=== PATIENT | female | born 1955 | race Caucasian/White ===

== ENCOUNTER 2019-06-18 08:13 | Outpatient (CLI) | payer BC, SELFPAY ==
--- NOTE | ~2019-06-18 | MMUS_ITS ---
EXAMINATION: MM diag stella implant BI w shantel, US breast RT limited HISTORY: Lump in the lower inner right breast, history of right mastectomy with implant reconstructio n and left breast implant TECHNIQUE: Craniocaudal, mediolateral, and mediolateral oblique 3-D tomosynthesis images with implant displacement of the left breast were performed and synthetic 2-D images were generated. Craniocauda l, mediolateral oblique, and mediolateral views of both breasts without implant displacement were obt ained using full field digital mammography. CAD analysis was submitted and interpreted. High resoluti on limited right breast ultrasound was performed. COMPARISON: 08/15/2017, 09/05/2016, 09/14/2014, 04/08/2013 BREAST PARENCHYMAL COMPOSITION: There are scattered areas of fibroglandular density. FINDINGS: There is no evidence of suspicious mass, calcification, or architectural distortion in either breast to suggest malignancy. There has been no suspicious interval change. No mammographic correlate is i dentified for the reported palpable abnormality of the right breast. ULTRASOUND: There is no evidence of focal abnormal solid or cystic lesion in the vicinity of the reported right b reast lump. IMPRESSION: 1. No specific mammographic or sonographic correlate is identified for the reported palpable abnormal ity of concern of the right breast. Further evaluation at this time should be based on clinical asses sment. Continued follow-up physical examination is recommended. 2. Recommend routine screening mammography in one year. BI-RADS Category 1: Negative Reviewed, dictated and finalized at location A. [employer] IMPRESSION: 1. No specific mammographic or sonographic correlate is identified for the repo rted palpable abnormality of concern of the right breast. Further evaluation at this time should be based on clinical assessment. Continued follow-up physical examination is recommended. 2. Recommend routine screening mammography in one year. BI-RADS Category 1: Negative
== END 2019-06-18 08:14 ==
PROVIDERS: Visit Provider Nurse Practitioner
DX: N63.14 Unspecified lump in the right breast, lower inner quadrant (principal); Z90.11 Acquired absence of right breast and nipple
CPT/HCPCS: 76642; 77062; 77066; G0279

== ENCOUNTER → 2020-10-13 10:11 | Outpatient (CLI) | payer MEDICARE, SELFPAY ==
--- NOTE | ~2020-10-13 | DEXA_ITS ---
Bone Density Report Name: Lali Walker Age: 65 Sex: Female Ethnicity: White Date of : 1955 Indication: monitoring treatment; hysterectomy; postmenopausal Referring Provider: GAYLE, GABBY Study: Bone densitometry was performed. Exam Date: October 13, 2020 Accession number: [id number] Bone Density: Region BMD T-score Z-score Classification AP Spine (L1-L4) 1.128 0.7 2.5 Normal Femoral Neck (Left) 0.800 -0.4 1.1 Normal Total Hip (Left) 0.933 -0.1 1.2 Normal Femoral Neck (Right) 0.812 -0.3 1.2 Normal Total Hip (Right) 0.939 0.0 1.2 Normal Total Hip Mean 0.936 -0.1 1.2 Normal World Health Organization criteria for BMD impression classify patients as: Normal (T-score at or above -1.0), Osteopenia (T-score between -1.0 and -2.5), or Osteoporosis (T-score at or below -2.5). 10-year Fracture Risk: FRAX not reported because: All T-scores for Spine Total, Hip Total, Femoral Neck at or above -1.0 Treated for osteoporosis Previous Exams: Region Exam Age BMD T-score BMD Change BMD Change Date g/cm2 vs Baseline vs Previous AP Spine(L1-L4) 10/13/2020 65 1.128 0.7 0.031* 0.042* 04/07/2015 59 1.087 0.4 -0.011 -0.011 05/04/2004 48 1.098 0.5 Total Hip(Left) 10/13/2020 65 0.933 -0.1 -0.041* -0.015 04/07/2015 59 0.947 0.0 -0.026 -0.026 05/04/2004 48 0.973 0.3 Total Hip(Right) 10/13/2020 65 0.939 0.0 -0.073* -0.006 04/07/2015 59 0.946 0.0 -0.067* -0.067* 05/04/2004 48 1.013 0.6 *Denotes significance at 95% confidence level, LSC for AP Spine = 0.022 g/cm2, LSC for Total Hip = 0.027 g/cm2 Clinical Information Provided by Patient: Is being treated for osteoporosis Has used the following medications: HRT (i.e. estrogen/hormone therapy), Vitamin D Has the following medical conditions: Hysterectomy, Hx of right breast ca Patient maximum height was 65.5 Menopause Age: 38 No regular weight bearing exercise Drinks caffeinated beverages Onset of menses at age 12 Number of children 2 Impression: The patient has normal bone mass. No significant bone loss was observed. Discussion: PATIENT UNDER TREATMENT WITH NO SIGNIFICANT BMD LOSS SINCE LAST EXAM. In an untreated patient, BMD typically declines with age. A lack of decline or gain is usually a sign that treatment is efficacious and fracture risk is re
== END ==
PROVIDERS: PCP Family Medicine; Visit Provider Nurse Practitioner
DX: Z78.0 Asymptomatic menopausal state (principal)
CPT/HCPCS: 77080

== ENCOUNTER → 2020-11-03 12:21 | Outpatient (CLI) | payer MEDICARE, SELFPAY ==
--- NOTE | ~2020-11-03 | MM_ITS ---
EXAMINATION: MM scrn stella implant BI w shantel HISTORY: Screening mammogram, history of right breast cancer with mastectomy and implant reconstructi on and left breast implant TECHNIQUE: Craniocaudal and mediolateral oblique 3-D tomosynthesis images with implant displacement o f the left breast and synthetic 2-D images were generated. Craniocaudal and mediolateral oblique view s of the breasts without implant displacement were obtained using full field digital mammography. CAD analysis was submitted and interpreted. COMPARISON: 06/18/2019, 08/15/2017, 09/05/2016 BREAST PARENCHYMAL COMPOSITION: There are scattered areas of fibroglandular density. FINDINGS: There is no evidence of suspicious mass, calcification, or architectural distortion to sugg est malignancy in either breast. There has been no suspicious interval change. IMPRESSION: 1. No mammographic evidence of malignancy. 2. Recommend routine screening mammography in one year. BI-RADS Category 1: Negative Reviewed, dictated and finalized at location A.
== END ==
PROVIDERS: Visit Provider Nurse Practitioner
DX: Z12.31 Encounter for screening mammogram for malignant neoplasm of breast (principal)
CPT/HCPCS: 77063; 77067

== ENCOUNTER 2021-08-24 11:04 | Outpatient (CLI) | payer MEDICARE, SELFPAY ==
--- NOTE | ~2021-08-24 | XR_ITS ---
EXAMINATION: XR abdomen/kub 1V INDICATION: Hematuria TECHNIQUE: Supine views of the abdomen were obtained on 2 radiographs. COMPARISON: CT from today FINDINGS: No urinary tract calculi are identified. The bowel gas pattern is normal. There are no dila mariely loops of bowel. The visualized lung bases are clear. IMPRESSION: 1. No urolithiasis identified. Reviewed, dictated and finalized at location B.
--- NOTE | ~2021-08-24 | CT_ITS ---
EXAMINATION: CT abdomen pelvis wo/w con DATE: 08/24/2021 11:50 INDICATION: Hematuria. History of bladder infections. Cyst removed from kidney. Hysterectomy. TECHNIQUE: Computed tomography (CT) of the abdomen and pelvis was performed without and subsequently with 130 CC Omnipaque 350 intravenous contrast. Automated exposure control and iterative reconstructi on technique were employed. Exam dose: 1228.14 mGy-cm total exam DLP. COMPARISON: 12/17/2013 CT abdomen pelvis FINDINGS: The lung bases are clear of infiltrate or consolidation. Bilateral breast implants. Normal heart size. No pericardial or pleural effusion. There are numerous hypoattenuating lesions of the liver, many quite small, the largest measuring up t o approximately 1 cm. Dalton small to definitively characterize but these are most likely cysts. Normal splenic size. No pancreatic mass lesion, calcification or ductal dilatation. The gallbladder is present. No bile duct dilatation. Normal morphology of the adrenal glands. Stable small upper pole left renal cyst since 12/17/2013. No suspicious renal mass lesion is noted. No urinary tract calculus or hydroureteronephrosis. The urinar y bladder is unremarkable. Status post hysterectomy. There is atherosclerotic calcification but normal caliber of the abdominal aorta and iliac arteries. No intraperitoneal or retroperitoneal or pelvic mass lesion or adenopathy or ascites. There are numerous diverticula of the sigmoid colon and to a lesser extent descending colon; no evide nce of diverticulitis. No bowel obstruction, bowel wall thickening, pneumatosis or intraperitoneal free air. Proxy 7 x 10 mm polypoid filling defect is noted at the posterior base of the urinary bladder near mi dline. Cystoscopic correlation and possible biopsy are recommended. Severe degenerative disease and minimal retrolisthesis at L5-S1. Mild grade 1 anterolisthesis at L3-4 due to degenerative change at the apophyseal joints. No suspicious osteolytic or osteoblastic lesions are noted. IMPRESSION: 7 x 10 mm mass in posterior basal urinary bladder; cystoscopic correlation and possible biopsy are recommended Hepatic cysts, very small upper pole stable left renal cyst Diverticulosis of left colon; no CT evidence of diverticulitis Reviewed, dictated and finalized at Location A. Reviewed, dictated and finalized at location A. IMPRESSION: 7 x 10 mm mass in posterior basal urinary bladder; cystoscopic cor relation and possible biopsy are recommended Hepatic cysts, very small upper pole stable left renal cyst Diverticulosis of left colon; no CT evidence of diverticulitis
[2021-08-24 11:28] LABS: Estimated Glomerular Filt Rate > 60
== END 2021-08-24 11:05 ==
PROVIDERS: PCP Family Medicine; Visit Provider Nurse Practitioner Adult Health
DX: R31.9 Hematuria, unspecified (principal); K57.30 Diverticulosis of large intestine without perforation or abscess without bleeding; K76.89 Other specified diseases of liver
CPT/HCPCS: 74018; 74178; Q9967

== ENCOUNTER 2021-11-30 10:43 | Outpatient (CLI) | payer MEDICARE, SELFPAY ==
[2021-11-30 11:21] LABS: Hematocrit 43.8 % (37.0-47.0); Hemoglobin 14.1 g/dL (12.0-15.0); Mean Corpuscular HGB Conc 32.2 g/dl (32-36); Mean Corpuscular Hemoglobin 28.2 pg (26-34); Mean Corpuscular Volume 87.6 fl (80-100); Platelet Count Result 346 k/mm3 (150-375); Red Cell Distribution Width 13.7 % (11.5-14.5); White Blood Count 7.5 K/mm3 (4.5-10.0)
[2021-11-30 12:44] LABS: Prothrombin Time 12.6 Seconds (11.1-14.7)
[2021-11-30 12:45] LABS: Fibrinogen 358 mg/dl (215-510); Partial Thromboplastin Time 34.2 SECONDS (22.3-36.8)
== END 2021-11-30 10:44 | disposition home or self-care (01) ==
LOC: ANHLAB 10:45
PROVIDERS: PCP Family Medicine; Visit Provider Internal Medicine Hematology & Oncology
DX: R23.3 Spontaneous ecchymoses (principal)
CPT/HCPCS: 36415; 85027; 85240; 85245; 85246; 85247; 85384; 85610; 85670; 85730

== ENCOUNTER 2021-12-31 11:31 | Emergency (ER) | payer MEDICARE, SELFPAY ==
--- NOTE | ~2021-12-31 | XR_ITS ---
EXAMINATION: XR hip RT min 2V DATE: 12/31/2021 12:36 INDICATION: Right hip pain. Fall. TECHNIQUE: 3 views of right hip were obtained. COMPARISON: None. FINDINGS: Bone alignment is normal. No fracture. There is mild right hip osteoarthritis. IMPRESSION: 1. Mild right hip osteoarthritis. Reviewed, dictated and finalized at location A.
--- NOTE | ~2021-12-31 | XR_ITS ---
EXAMINATION: XR sacrum coccyx min 2V DATE: 12/31/2021 13:13 INDICATION: Sacrococcygeal pain. Fall. TECHNIQUE: 3 views of the sacrum and coccyx were obtained. COMPARISON: CT abdomen and pelvis 08/24/2021 FINDINGS: Bone alignment is normal. No fracture. There is mild osteoarthritis of the sacroiliac joint s. There is severe lower lumbar spondylosis. IMPRESSION: 1. No fracture. Reviewed, dictated and finalized at location A. IMPRESSION: 1. No fracture.
--- NOTE | ~2021-12-31 | XR_ITS ---
EXAMINATION: XR hip LT 2V w AP pelvis DATE: 12/31/2021 12:35 INDICATION: Left hip pain. Pelvic pain. Fall. TECHNIQUE: An anteroposterior view of the pelvis and 3 views of left hip were obtained. COMPARISON: CT abdomen and pelvis 08/24/2021 FINDINGS: Bone alignment is normal. No fracture. There is mild osteoarthritis of the hips. There is s evere lower lumbar spondylosis. IMPRESSION: 1. Mild osteoarthritis of the hips. Reviewed, dictated and finalized at location A.
[2021-12-31 11:39] VITALS: BP 144/70; PULSE 71; RESP 16; TEMP 36.2; O2SAT 100
--- NOTE | 2021-12-31 12:09 | ED.GENADULT ---
HPI - General Adult General Chief complaint: Back Pain/Injury Stated complaint: back pain Source: patient Mode of arrival: ambulatory Limitations: no limitations History of Present Illness HPI narrative: Patient presents for evaluation after experiencing a fall yesterday. She indicates she was getting out of her car in her garage. She slipped on the footboard in the garage floor was wet. She landed on her buttocks. She did not hit her head. No loss of consciousness. She is not on blood thinners. She now has pain in her posterior pelvis, bilateral hips, coccyx and left upper arm. She states that pain is constant, worse with movement. She states that pain in her left upper extremity is simply sore. No loss of range of motion. No numerical rating the pain. She states that pain in her posterior pelvis, coccyx are more severe. She took tramadol which seemed to help. No saddle anesthesia. No bladder/bowel incontinence. Related Data Home Medications Medication Instructions Recorded Confirmed amoxicillin 875 mg-potassium 1 tablet PO BID 12/31/21 12/31/21 clavulanate 125 mg tablet ergocalciferol (vitamin D2) 1,250 1,250 mcg PO WEEKLY 12/31/21 12/31/21 mcg (50,000 unit) capsule estradiol 1 mg tablet 1 mg PO DAILY 12/31/21 12/31/21 Allergies Allergy/AdvReac Type Severity Reaction Status Date / Time levofloxacin Allergy Unknown Other Verified 12/31/21 12:03 metronidazole Allergy Unknown Other Verified 12/31/21 12:03 Penicillins Allergy Unknown Other Verified 12/31/21 12:03 Review of Systems Review of Systems: CONSTITUTIONAL: Denies fever, chills, or sweats. EYES: Denies visual changes, redness, or discharge. ENT: Denies rhinorrhea, congestion, sore throat, or otalgia. CARDIOVASCULAR: Denies chest pain, palpitations, or edema. RESPIRATORY: Denies cough or dyspnea. GASTROINTESTINAL: Denies abdominal pain, nausea, vomiting, or diarrhea. GENITOURINARY: Denies dysuria or hematuria. SKIN: Denies rash or itching. MUSCULOSKELETAL: Reports pain in left upper arm, posterior pelvis, coccyx, bilateral hips. NEUROLOGIC: Denies headache, numbness, dizziness, or weakness. PSYCHIATRIC: Denies anxiety or depression. [facility] Past Medical History Medical History (Updated 12/31/21 @ 13:32 by Raulito Denton, [facility]) Pelvic contusion Vitamin D deficiency Family History Family History Sibling Patient's brother is in good health Other Family history of arthritis Social History Social History Smoking status: Never smoker Second hand tobacco smoke exposure: No Alcohol intake: current Substance use: never Gender identity (if verbalized by the patient): Female Spiritual care concerns: No Exam Narrative: GENERAL: Well-appearing, well-nourished, and in no acute distress. HEAD: Normocephalic, atraumatic. EYES: PERRLA and EOMI. ENT: Nares clear, no rhinorrhea or epistaxis. Mucous membranes moist. Oropharynx without tonsillar hypertrophy exudate or other lesions. Bilateral TMs pearly martel nonbulging NECK: Supple. No adenopathy or masses. No carotid bruits or JVD CHEST: Clear to auscultation. No respiratory distress. No wheezes rales or rhonchi HEART: Regular rate and rhythm. No murmur heard. Normal peripheral pulses. ABDOMEN: Soft, nontender, nondistended, normal active bowel sounds. EXTREMITIES: Normal range of motion. No edema. SKIN: Warm, dry, no rash. NEURO: No focal deficits. Alert and oriented x3. PSYCH: Normal mood and affect. Course Course Emergency Course: This is a 66-year-old female who presented for evaluation of pain in her posterior pelvis, coccyx, hips following a fall. X-rays were negative for fracture. She has had favorable response to tramadol. Will DC with a prescription for small quantity of tramadol. She may continue to take NSAIDs. She should follow-up outpatient
== END 2021-12-31 13:39 | disposition home or self-care (01) ==
PROVIDERS: Emergency Provider Nurse Practitioner; PCP Family Medicine
DX: S30.0XXA Contusion of lower back and pelvis, initial encounter (principal); W01.0XXA Fall on same level from slipping, tripping and stumbling without subsequent striking against object, initial encounter; E55.9 Vitamin D deficiency, unspecified
CPT/HCPCS: 72220; 73502; 99214; G0463

== ENCOUNTER → 2022-07-29 07:50 | Outpatient (CLI) | payer MEDICARE, SELFPAY ==
--- NOTE | ~2022-07-29 | CT_ITS ---
EXAMINATION: CT soft tissue neck w con DATE: 07/29/2022 08:34 INDICATION: Cervical lymphadenopathy. Neck pain. TECHNIQUE: Computed tomography (CT) of the neck was performed with 75 mL Omnipaque-350 intravenous co ntrast. Automated exposure control and iterative reconstruction technique were employed. The dose-fidencio gth product was 379.42 mGy-cm. COMPARISON: None FINDINGS: There is mild emphysema. There is mild scarring at the lung apices. There are bilateral opt ic nerve drusen. There are no pathologically enlarged lymph nodes. There is plaque in proximal right internal carotid artery with 0% stenosis relative to normal distal artery lumen diameter. There is se araceli cervical spondylosis. The paranasal sinuses are clear. The mastoid air cells are normal. IMPRESSION: 1. No lymphadenopathy. 2. Mild emphysema. Reviewed, dictated and finalized at location D.
[2022-07-29 08:21] LABS: Estimated Glomerular Filt Rate > 60
== END ==
PROVIDERS: PCP Family Medicine; Visit Provider Family Medicine
DX: R59.0 Localized enlarged lymph nodes (principal); J43.9 Emphysema, unspecified
CPT/HCPCS: 70491; Q9967

== ENCOUNTER → 2022-08-16 12:39 | Outpatient (CLI) | payer MEDICARE, SELFPAY ==
--- NOTE | ~2022-08-16 | MM_ITS ---
EXAMINATION: MM scrn stella implant BI w shantel HISTORY: Screening mammogram, history of right mastectomy and implant reconstruction TECHNIQUE: Craniocaudal and mediolateral oblique 3-D tomosynthesis images with implant displacement a nd synthetic 2-D images of the right breast were generated. Craniocaudal and mediolateral oblique vie ws of the breasts without implant displacement were obtained using full field digital mammography. CA D analysis was submitted and interpreted. COMPARISON: 11/03/2020, 06/18/2019, 08/15/2017 BREAST PARENCHYMAL COMPOSITION: There are scattered areas of fibroglandular density. FINDINGS: There is no evidence of suspicious mass, calcification, or architectural distortion to sugg est malignancy in either breast. There has been no suspicious interval change. IMPRESSION: 1. No mammographic evidence of malignancy. 2. Recommend routine screening mammography in one year. BI-RADS Category 1: Negative Reviewed, dictated and finalized at location A.
== END ==
PROVIDERS: PCP Nurse Practitioner; Visit Provider Nurse Practitioner
DX: Z12.31 Encounter for screening mammogram for malignant neoplasm of breast (principal)
CPT/HCPCS: 77063; 77067

== ENCOUNTER 2024-03-02 11:19 | Outpatient (CLI) | payer MEDICARE, SELFPAY ==
[2024-03-02 12:20] LABS: Strep Group A RT-PCR NOT DETECTED (Negative)
[2024-03-02 12:31] LABS: Influenza A QL RT-PCR Negative (Negative); Influenza B QL RT-PCR Negative (Negative); SARS-CoV-2 RNA PCR Negative (Negative)
== END 2024-03-02 11:20 | disposition home or self-care (01) ==
LOC: ANHLAB 11:23
PROVIDERS: PCP Nurse Practitioner; Visit Provider Internal Medicine
DX: J06.9 Acute upper respiratory infection, unspecified (principal); Z20.822 Contact with and (suspected) exposure to COVID-19
CPT/HCPCS: 87502; 87635; 87651

== ENCOUNTER 2024-04-15 14:11 | Outpatient (CLI) | payer MEDICARE, SELFPAY ==
--- NOTE | ~2024-04-15 | CT_ITS ---
EXAMINATION: CT abdomen pelvis w con DATE: 04/15/2024 14:43 INDICATION: Epigastric abdominal pain. TECHNIQUE: Computed tomography (CT) of the abdomen and pelvis was performed with 100 mL Omnipaque 350 intravenous contrast. Automated exposure control and iterative reconstruction technique were employe d. The dose-length product was 413.48 mGy-cm. COMPARISON: CT abdomen and pelvis 08/24/2021 FINDINGS: The visualized portions of the lung bases demonstrate minimal atelectasis. No pleural effus ion. The heart size is normal. No pericardial effusion. Partially visualized is a right breast implan t. There are cysts in the liver measuring up to 9 mm. The gallbladder, spleen, pancreas, adrenal glan ds, and kidneys are normal. There is diverticulosis of the colon without evidence of diverticulitis. There are no dilated loops of bowel. The appendix is not visualized. There are no pathologically enla rged lymph nodes. There is no free intraperitoneal fluid. There is severe lower lumbar spondylosis. IMPRESSION: 1. No etiology for the patient's symptoms. Reviewed, dictated and finalized at location A. [employer]
[2024-04-15 14:31] LABS: Estimated Glomerular Filt Rate > 60
== END 2024-04-15 14:12 | disposition home or self-care (01) ==
LOC: MICIMG 14:13
PROVIDERS: PCP Internal Medicine Gastroenterology; Visit Provider Internal Medicine Gastroenterology
DX: R10.13 Epigastric pain (principal)
CPT/HCPCS: 74177; Q9967

== ENCOUNTER 2024-07-05 12:56 | Outpatient (CLI) | payer MEDICARE, SELFPAY ==
--- NOTE | ~2024-07-05 | DEXA_ITS ---
Bone Density Report Name: SIRISHA HOWARD Age: 68 Sex: Female Ethnicity: White Date of : 1955 Indication: postmenopausal; screening for osteoporosis; hysterectomy; Referring Provider: GAYLE, GABBY Study: Bone densitometry was performed. Exam Date: July 05, 2024 Accession number: [id number] Bone Density: Region BMD T-score Z-score Classification AP Spine(L1-L4) 1.131 0.8 2.8 Normal Femoral Neck (Left) 0.777 -0.7 1.1 Normal Total Hip (Left) 0.883 -0.5 1.0 Normal Femoral Neck (Right) 0.804 -0.4 1.3 Normal Total Hip (Right) 0.944 0.0 1.5 Normal Total Hip Mean 0.914 -0.3 1.3 Normal World Health Organization criteria for BMD impression classify patients as: Normal (T-score at or above -1.0), Osteopenia (T-score between -1.0 and -2.5), or Osteoporosis (T-score at or below -2.5). 10-year Fracture Risk: FRAX not reported because: All T-scores for Spine Total, Hip Total, Femoral Neck at or above -1.0 Clinical Information Provided by Patient: Has used the following medications: Vitamin D Has the following medical conditions: Hysterectomy Patient maximum height was 65.0 Menopause Age: 38 No regular weight bearing exercise Drinks caffeinated beverages Onset of menses at age 11 Number of children 2 Impression: The patient has normal bone mass. Discussion: BONE DENSITY IS ABOVE THE MINIMUM DESIRABLE LEVEL AT ALL SKELETAL SITES TESTED. This patient?s bone mineral density is above the minimum desirable level (T-score -1.0 or better) at all sites measured. The patient should follow a healthful lifestyle (good nutrition with adequate calcium and vitamin D, and appropriate weight-bearing exercise). Follow-Up: Consider repeating this study in 5 years or sooner if there is some new clinical indication. Reported by: DOMINGO on 07/05/2024 1:32:00 PM. Reviewed, dictated and finalized at location Allan VILLALBA
--- OUTSIDE RECORDS SUMMARY | 2024-07-05 14:54 | XMS_ITS | Data Portability ---
Author Organization NOAH LAINASabrina Lopez Address [address] [place] [address] Assessment No assessment recorded. Plan of Treatment Reminders Order Date Submit Date Provider Last Modified By Organization Details Last Modified Time Details Appointments None recorded. Lab SARS CoV 2 RNA (COVID-19), QL, therapeutic recreation leader-PCR, respiratory specimen - granite, exposure 2019 020 ALCON [facility] (Lab), [address] [place], [address], 0 18:11:34 Referral None recorded. Procedures None recorded. Surgeries None recorded. Imaging None recorded. Medication Orders None recorded. Patient TargetsNo targets recorded. Patient Instructions Encounter Date Encounter Id Patient Instructions Last Modified By Organization Details Last Modified Time 08/31/2019 [id number] Reviewed the following recommendations: -Stay home and separate from others as much as possible. -Monitor your symptoms and seek medical attention for trouble breathing, persistent chest pain, confusion, or bluish lips or face. -Wear a mask if you must be around other people. -Wash your hands often for 20 seconds with soap and water and clean high-touch surfaces daily [email or web address] Not available 08/31/2019 10:45:08 Reason for Referral None Reported. Results Created Date Observation Date Name Description Value Unit Range Abnormal Flag Note LastModifiedBy Organization Detail LastModifiedTime 08/31/19 20 08/31/2019 SARS CoV 2 RNA (COVI D-19) , QL, therapeutic recreation leader-P CR, respi rator y speci men sars - cov - 2 PCR NEGATI VE mL Not Available [facility] [address] [place], [address], 09/01/2019 18:11:34 08/31/19 20 08/31/2019 SARS CoV 2 RNA (COVI D-19) , QL, therapeutic recreation leader-P CR, respi rator y speci men covidcom1 This assay is desig evette to detec t the RdRp and N genes of SARS- CoV-2 using nucle ic acid ampli ficat ion. A negat evin resul t does not precl ude the possi bilit y of 2019- nCoV infec tion since the adequ acy of sampl e colle ction and/o r low viral burde n may resul t in the prese nce of viral nucle ic acids level s below the silviano tical sensi tivit y of this test metho d. Not Available [facility] (Lab) [address] [place], [address], 09/01/2019 18:11:34 08/31/19 20 08/31/2019 SARS CoV 2 RNA (COVI D-19) , QL, therapeutic recreation leader-P CR, respi rator y speci men covidcom2 Posit evin resul ts are indic ative of the prese nce of SARS- CoV-2 RNA and do not rule out bacte rial infec tion or co-in fecti on with other virus es. Not Available [facility] (Lab) [address] [facility], [place], [address], 09/01/2019 18:11:34 08/31/19 20 08/31/2019 SARS CoV 2 RNA (COVI D-19) , QL, therapeutic recreation leader-P CR, respi rator y speci men covidcom3 Test resul ts shoul d be used along with other clini monse obser vatio ns, patie nt histo ry, epide miolo gical infor matio n and labor atory data in makin g the diagn osis. Not Available [facility] (Lab) [address] [facility], [place], [address], 09/01/2019 18:11:34 08/31/19 20 08/31/2019 SARS CoV 2 RNA (COVI D-19) , QL, therapeutic recreation leader-P CR, respi rator y speci men covidcom4 This test has recei galo FDA Emerg ency Use Autho rizat ion and has been verif ied by [facility] [employer] [facility] ([employer]) . This test is only autho rized for the durat ion of the decla ratio n and the circu mstan tawanna that exist to justi fy the autho rizat ion of the emerg ency use of in vitro diagn ostic tests for the detec tion of SARS- CoV-2 virus and/o r diagn osis of COVID -19 infec tion under secti on 564 (b) (1) of the Act. 11 U.S.C . 360bb b-3 (b) (1), unles s the autho rizat ion is termi nated or revok ed soone r. Not Available [facility] (Lab) [address] [place], [address], 09/01/2019 18:11:34 08/31/19 20 08/31/2019 SARS CoV 2 RNA (COVI D-19) , QL, therapeutic recreation leader-P CR, respi rator y speci men covidcom5 [facility] [employer] atory is certi fied under CLIA- 88 as quali fied to perfo rm high compl exity testi ng. This testi ng was perfo rmed in the [facility] [employer] [place] [address] (CLIA Licen se #[id number], CAP #[id number], AU-ID #[id number]). Not Available [facility] (Lab) [address] [place], [address], 09/01/2019 18:11:34 08/31/19 20 08/31/2019 SARS CoV 2 RNA (COVI D-19) , QL, therapeutic recreation leader-P CR, respi rator y speci men covidcom6 Facts heet for healt hcare provi ders: https ://ww w.fda .gov/ media /3364 56/do wnloa d Facts heet for patie nts: https ://ww w.fda .gov/ media /1362 57/do wnloa d Not Available [facility] (Lab) [address], [place], [address], 09/01/2019 18:11:34 Result Notes None recorded. Medical Equipment None Reported. Medications Name Sig Start Date Stop Date Status Note LastModified by Organization Details LastModified Time clindamycin HCl 300 mg capsule active Not Available Not Availab le Not Available azithromycin 250 mg tablet active Not Available Not Available No t Available ibuprofen 800 mg tablet active Not Available Not Available Not Available fluconazole 150 mg tablet active Not Available Not Available No t Available metronidazole 0.75 % (37.5 mg/5 gram) vaginal gel active Not Available Not Available Not Available terconazole 0.8 % vaginal cream active Not Available Not Availa ble Not Available metronidazole 250 mg tablet active Not Available Not Availabl e Not Available bimatoprost 0.03 % eye drops active Not Available Not Available Not Available ciprofloxacin 500 mg tablet active Not Available Not Availabl e Not Available estradiol 1 mg tablet active Not Available Not Available Not Available ergocalciferol (vitamin D2) 1,250 mcg (50,000 unit) capsule active Not Available Not Available Not Available diazepam 5 mg tablet active Not Available Not Available Not Available nitrofurantoin monohydrate/macr ocrystals 100 mg capsule active Not Available Not Available Not Available Lumigan 0.01 % eye drops active Not Available Not Available No t Available Vitals None Recorded Social History None recorded. Functional Status None recorded. Mental Status None recorded. Family History Nothing Reported. Medical History No medical history recorded. Gynecological HistoryNo gynecological history recorded. Obstetrics History GPAL:G 0 P 0 0 0 0 Past Encounters Encounter ID Performer Location Encounter Start Date Encounter Closed Date Diagnosis/Indication Diagnosis SNOMED-CT Code Diagnosis ICD10 Code Diagnosis Note [id number] DEE BURT [address] [place] [address] 08/31/2019 10:18:07 08/31/2019 15:20:20 Exposure to SARS-CoV-2 411882110 Z20.828 Health Concerns Section Related Observation LastModified by Organization Detai ls LastModified Time None Recorded Concern Status LastModified by Organization Details LastModified Time None Recorded Advance Directives Directive None Recorded Payers Encounter Date Sequence Insurance Name Policy Number Policy Black Covered Member ID Black Member ID Guarantor Name 08/31/2019 1 [facility] [facility] ([place] [id number] Lali Walker [id number] Lali Walker Notes Date Note Type Note Provider Name and Address Organization Details Recorded Time 08/31/2019 text/html COVID ScreeningReported bypatient.Onset/Durati on of fever:no fever Associated Symptoms:no cough; no shortness of breathCOVID-19 SymptomsReported bypatient.COVID-19 Signs and Symptomscough resolved; fever resolved; shortness of breath resolved Associated Symptoms:no sputum production; no shortness of breath; no wheezing; no fever; no runny nose; no sore throat; no vomiting; no diarrhea; no body aches; no nausea; no change in mental status; no hypotension; no tachycardia pt states that she has a family member that recently tested positive and would like screening she denies any symptoms CHINYERE DOSHI NP Attn: Accounting,[address] [place], [address], [facility] 08/31/2019 10:45:36 OBGyn Episode No OBEpisode recorded.
--- OUTSIDE RECORDS SUMMARY | 2024-07-05 14:55 | XMS_ITS | Patient Health Record ---
Author Organization [facility] Address [address] [place], [place] [id number] Care Team Providers Care Attenuator Name Role Phone ROGERIO SANDS Unavailable [phone] Nguyen Palomino Unavailable Unavailable Allergies No Known Allergies Reason For Referral No Information Medications Medication SIG (Take, Route, Frequency, Duration) Notes Start Date End Date Status Medrol 4 MG as directed Orally 11/22/2022 Active Medrol 4 MG as directed Orally 01/20/2023 Active Immunizations Vaccine Route Administration Date Status Comme nts Influenza, high dose seasonal Unknown 03/06/2023 Admini stered Vital Signs Height-cm 165.10 cm 03/11/2024 Weight-kg 67.13 kg 03/11/2024 Height 65.00 in 03/11/2024 Weight 148 lbs 03/11/2024 BMI 24.63 kg/m2 03/11/2024 Encounters Encounter Location Date Provider Diagnosis [facility] [address] [place] [address] [id number] 10/02/2023 ROGERIO SHAVON Plantar wart B07.0 ; Other eccrine sweat disorders L74.8 and Left foot pain M79.672 [facility] [address] [place] [address] [id number] 10/16/2023 ROGERIODEBI SANDS Plantar wart B07.0 ; Other eccrine sweat disorders L74.8 and Left foot pain M79.672 [facility] [address] [place] [address] [id number] 01/01/2024 ROGERIO SHAVON Achilles tendinitis of left lower extremity M76.62 ; Lesion of plantar nerve, 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 ; Other acquired deformities of left foot M21.6X2 and Left foot pain M79.672 [facility] [place] [address] [address] [place] [address] [id number] 01/15/2024 ROGERIO SHAVON Achilles tendinitis of left lower extremity M76.62 ; Lesion of plantar nerve, 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 ; Other acquired deformities of left foot M21.6X2 ; Left foot pain M79.672 and Pain in right foot M79.671 [facility] [place] [address] [address] [place] [address] [id number] 03/11/2024 ROGERIO SHAVON Achilles tendinitis of left lower extremity M76.62 ; Lesion of plantar nerve, 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 ; Other acquired deformities of left foot M21.6X2 ; Left foot pain M79.672 and Pain in right foot M79.671 Assessments Encounter Date Diagnosis (ICD Code) Assessment Notes Treatment Notes Treatment Clinical Notes Section Notes 10/02/2023 Plantar wart (ICD-10 - B07.0) 10/02/2023 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) 10/16/2023 Plantar wart (ICD-10 - B07.0) 01/01/2024 Achilles tendinitis of left lower extremity (ICD-10 - M76.62) 01/15/2024 Achilles tendinitis of left lower extremity (ICD-10 - M76.62) 03/11/2024 Achilles tendinitis of left lower extremity (ICD-10 - M76.62) 03/11/2024 Lesion of plantar nerve, 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 - G57.61) 01/15/2024 Lesion of plantar nerve, 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 - G57.61) 01/15/2024 Other acquired deformities of left foot (ICD-10 - M21.6X2) 10/16/2023 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) 01/01/2024 Lesion of plantar nerve, 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 Patient was advised to keep dry for 3 days. 10/16/2023 Other Pyrogallic Acid : Lesions were debrided and pyrogallic acid was applied to the area. Patient was advised to keep dry for 3 days. 01/01/2024 Other Following skin prep, a total of 3 ccs of a 1-1-1 mix of 0.5% marcaine plain, Kenalog, and dexamethasone sodium phosphate was injected into the patients right third interspace A removable strapping was applied to the patient's right foot. The patient was instructed on its use. The patient was given heel stretching exercises. 01/15/2024 Other Following skin prep, a total of 3 ccs of a 1-1-1 mix of 0.5% marcaine plain, Kenalog, and dexamethasone sodium phosphate was injected into the patients right third interspace 03/11/2024 Other Following skin prep, a total of 3 ccs of a 1-1-1 mix of 0.5% marcaine plain, Kenalog, and dexamethasone sodium phosphate was injected into the patients right third interspace Plan Of Treatment No Information Insurance Providers Payer Name Payer Address Payer Phone Subscriber Number Group Number Insured Name Patient Relationship to Insured Coverage Start Date Coverage End Date Medicare Part B [facility] [address] [place] [address] [id number] SIRISHA HOWARD Self - patient is the insured [facility] [address] [address] [place], [place] [phone] [id number] SIRISHA HOWARD Self - patient is the insured
--- OUTSIDE RECORDS SUMMARY | 2024-07-05 14:55 | XMS_ITS ---
Author Organization [facility] Address [address] [place], [place] [id number] Care Team Providers Care Wrestling Coach Name Role Phone ROGERIO VARGAS Unavailable [phone] GiuseppebalajipallaviNguyen Unavailable Unavailable REASON FOR VISIT neuroma Encounters Encounter Location Date Provider Diagnosis [facility] [place] [address] [place], [place] [id number] 05/27/2024 ROGERIO VARGAS Plan Of Treatment No Information Progress Notes * PARAM HOWARDOB:1955 ([age] yo F)Acc No.[id number]:05/27/2024 Patient: SIRISHA BAÑUELOS Provider: Kinza Vargas DPM :1955 A ge:68 Y S ex:Female Date:05/27/2024 Address:[address] [place] [address], [id number] Subjective: * Chief Complaints: * 1 . Neuroma. * Medical History: Objective: * Vitals: Assessment: Plan: * Treatment: * Billing Information: * Visit Code: * Procedure Codes: * Electronic signature of ROGERIO VARGAS DPM on 07/05/2024 at 02:54 PM CDT Sign off status: Pending * Provider: Kinza Vargas DPM Date: 0 05/27/2024 Generated for Gwendolyn rolle/Ritchie/eTransmitting on: 0 07/05/2024 02:54 PM CDT
--- OUTSIDE RECORDS SUMMARY | 2024-07-05 14:55 | XMS_ITS | Referral Summary ---
Author Organization [facility] [address] Address [address] [place] [address] Care Team Providers Care Funeral Service Licensee Name Role Phone Nguyen Palomino MD Primary Care Provider + Allergies Active Allergy Reactions Criticality Noted Date Comments Levofloxacin Headache High Metronidazole Unknown 10/16/2020 Penicillin V Potassium Unknown 10/16/2020 Penicillins Medications estradioL (ESTRACE) 1 mg tablet Take 1 mg by mouth daily 07/20/2020 Active bimatoprost (Lumigan) 0.01 % ophthalmic drops Lumigan 0.01 % eye drops INSTILL 1 DROP IN BOTH EYES EVERY NIGHT AT BEDTIME Active ergocalciferol (VITAMIN D) 50,000 unit capsule Take 1 capsule by mouth once a week 09/22/2020 Active ferrous sulfate 325 mg (65 mg of elemental iron) tablet Take 325 mg by mouth daily Active Active Problems Problem Noted Date Diagnosed Date RBBB 10/16/2020 GLYNN (dyspnea on exertion) 10/16/2020 Pure hypercholesterolemia 10/16/2020 Stress incontinence in female 11/17/2009 Urinary tract infection 11/17/2009 Overview (08/08/2017): Description: Recurrent Social History Tobacco Use Types Packs/Day Years Used Date Smoking Tobacco: Former Cigarettes Q uit: 2000 Smokeless Tobacco: Never Comments Unknown Sex and Gender Information Value Date Recorded Sex Assigned at Not on file 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 Gender Identity Not on file Sexual Orientation Not on file Last Filed Vital Signs Vital Sign Reading Time Taken Comments Blood Pressure 138/86 10/16/2020 9:39 AM CDT Pulse 81 10/16/2020 9:39 AM CDT Temperature - - Respiratory Rate - - Oxygen Saturation 98% 10/16/2020 9:39 AM CDT Inhaled Oxygen Concentration - - Weight 69.9 kg (154 lb) 10/16/2020 9:39 AM CDT Height 165.7 cm (5' 5.25 ) 10/16/2020 9:39 AM CD T Body Mass Index 25.43 10/16/2020 9:39 AM CDT Plan of Treatment Not on file Insurance [facility] [address] [place] [id number] Care Teams Funeral Service Licensee Relationship Specialty Start Date End Date Nguyen Palomino MD [address] [place] [address] [address] [place] [address] PCP - General Family Medicine 10/11/20
--- OUTSIDE RECORDS SUMMARY | 2024-07-05 14:55 | XMS_ITS | Encounter Summary ---
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 Historical Provider Final Res ult documented in this encounter Visit Diagnoses Not on filedocumented in this encounter Care Teams Ad Operations Associate Relationship Specialty Start Date End Date Nguyen Palomino MD [address] [place] [address] [address] [place] [address] PCP - General Family Medicine 10/11/20 documented as of this encounter
--- OUTSIDE RECORDS SUMMARY | 2024-07-05 14:55 | XMS_ITS | Patient Health Summary ---
Author Organization [facility] Address [address] [place] [address] Care Team Providers Care Baker Bread Name Role Phone Unavailable Primary Care Provider Unavailabl e Note from [facility],non-owned Affiliates and Associated Physician Practices is amultiple site organization consisting of ambulatory clinics and hospital sitesin [place], [place], [place] and [place]. This disclosure is being madepursuant to the Care Everywhere program and may not contain all information available regarding this patient. Last updated 18.[facility] Social History Tobacco Use Types Packs/Day Years Used Date Smoking Tobacco: Never Assessed Sex and Gender Information Value Date Recorded Sex Assigned at Not on file Gender Identity Not on file Sexual Orientation Not on file Procedures * PATH CONSULT ON REFERRED CASE(Performed 08/13/2021) Performed for Illness, unspecified Results * PATH CONSULT ON REFERRED CASE (08/13/2021 1:49 PM CDT) Final Diagnosis URINE/VOIDED (OSC: [id number]; 08/09/2021): - Less than optimal due to abundant squamous cell contamination - Negative for high grade urothelial carcinoma - Rare urothelia cells 08/14/2021 4:23 PM CDT [facility] Microscopic Description and Comment Performed. 08/14/2021 4:23 PM CDT [facility] Clinical History HEMATURIA 08/14/2021 4:23 PM CDT [facility] Materials Received Prepared slide received from [facility] [place] [facility] [id number]. All material will be returned. 08/14/2021 4:23 PM CDT [facility] Disclaimer The performance characteristics of all immunohistochemical and indirect immunofluorescence stains (if any) cited in this report were determined by the Histopathology Laboratory of [facility]. Some of these tests were developed by our own laboratory and have not been cleared or approved by the US Food and Drug Administration. The FDA does not require this test to go through premarket FDA review. These tests are used for clinical purposes. They should not be regarded as investigational or for research. This laboratory is certified under the Clinical Laboratory Improvement Amendments (CLIA) as qualified to perform high complexity clinical laboratory testing. This case has been personally reviewed and interpreted by the attending (teaching) pathologist. 08/14/2021 4:23 PM CDT [facility] Case Report Surgical Pathology Report Case: [id number] Authorizing Provider: Becky Garcia MD Collected: 08/13/2021 01:49 PM Ordering Location: [facility] Received: 08/13/2021 01:49 PM Pathologist: Jen Mcgee MD Specimen: Slide Consultation 08/14/2021 4:23 PM CDT [facility] Embedded Images 08/14/2021 4:23 PM CDT [facility] Pathology/Cytolo gy SURGICAL PATHOLOGY CONSULTATION AND REPORT ON REFERRED SLIDES PREPARED ELSEWHERE / Unknown 08/13/2021 1:49 PM CDT 08/13/2021 1:49 PM CDT Becky Garcia MD LAB - PATHOLOGY/CYTO LOGY ORDERABLES [facility] [address] [phone]
--- OUTSIDE RECORDS SUMMARY | 2024-07-05 14:55 | XMS_ITS | Clinical Summary ---
Author Organization [facility] [address] Address [address] [place] [address] Care Team Providers Care Production Broaching Machine Operator Name Role Phone Nguyen Palomino MD Primary [...] tract infection 11/17/2009 Overview (08/08/2017): Description: Recurrent Surgical History Surgery Date Site/Laterality Comments VT TOTAL ABDOMINAL HYSTERECT W/WO RMVL TUBE OVARY Hysterectomy - (Added by TW Conv) VT RMVL/REVJ SLING STRESS INCONTINENCE Removal/Revision Of Sling For Stress Incontinence - (Added by TW Conv) VT DELIVERY ONLY Section - 1979 & 1985 (Added by TW Conv) MASTECTOMY Breast Surgery Mastectomy - Right (Added by TW Conv) SHOULDER SURGERY CARPAL TUNNEL RELEASE Medical History Medical History Date Comments Personal history of urinary calculi Nephrolithiasis - (Added by DELMY Conv) Malignant neoplasm of female breast (HCC) Breast cancer - (Added by DELMY Conv) Anemia Glaucoma Arthritis Family History Medical History Relation Name Comments Heart attack Sister Relation Name Status Comments Brother Alive Father (Age 80) Mother (Age 80) Sister Alive Social History Tobacco Use Types Packs/Day Years Used Date Smoking Tobacco: Former Cigarettes Q uit: 2000 Smokeless Tobacco: Never Comments Unknown Sex and Gender Information Value Date Recorded Sex Assigned at Not on file 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
--- OUTSIDE RECORDS SUMMARY | 2024-07-05 14:55 | XMS_ITS | Clinical Summary ---
Author Organization [facility] Address [address] [place] [address] Care Team Providers Care Card Punching Machine Operator Name Role Phone Unavailable Primary Care Provider Unavailabl e Source Comments [facility],non-owned Affiliates and Associated Physician Practices is amultiple site organization consisting of ambulatory clinics and hospital sitesin [place], [place], [place] and [place]. This disclosure is being madepursuant to the Care Everywhere program and may not contain all information available regarding this patient. Last updated 18.[facility] Social History Tobacco Use Types Packs/Day Years Used Date Smoking Tobacco: Never Assessed Sex and Gender Information Value Date Recorded Sex Assigned at Not on file Gender Identity Not on file Sexual Orientation Not on file Plan of Treatment Health Maintenance Due Date Last Done Comments BONE DENSITY TESTING 1955 COLOGUARD (AGES 45-75) - COL ON CA SCREENING 1955 COLON MONITORING 1955 COLONOSCOPY - COLON CA SCREENING 1955 CT COLONOGRAPHY - COLON CA SCREENING 1955 Colorectal Cancer Screening 1955 FIT - COLON CA SCREENING 1955 FLEX SIG - COLON CA SCREENING 1955 LIPID TESTING 1955 MAMMOGRAM 1955 MEDICARE AWV 12 MONTHS 1955 HEPATITIS C SCREENING 08/23/1973 DTAP/TDAP/TD VACCINES (1 - Tdap) 08/27/1974 PNEUMOCOCCAL VACCINE 50+ (1 of 1 - PCV) 08/27/2005 ZOSTER VACCINE (1 of 2) 08/27/2005 COVID-19 VACCINE ( - 2023-2 5 season) 2023 INFLUENZA VACCINE (#1) 2023 DEPRESSION SCREENING 04/28/2024 Respiratory Syncytial Virus (RSV) Vaccine Pt: or over 60 yrs (1 - 1-dose 75+ series) 08/27/2030 HEPATITIS B VACCINE Aged Out No longe r eligible based on patient's age to complete this topic HIB VACCINE Aged Out No longer eligi ble based on patient's age to complete this topic HPV VACCINE Aged Out No longer eligi ble based on patient's age to complete this topic MENINGOCOCCAL (Group B) VACCINE Aged Out No longer eligible based on patient's age to complete this topic MENINGOCOCCAL VACCINE Aged Out No naeem ramy eligible based on patient's age to complete this topic
--- OUTSIDE RECORDS SUMMARY | 2024-07-05 14:55 | XMS_ITS ---
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 ; Other acquired deformities of left foot M21.6X2 ; Left foot pain M79.672 and Pain in right foot M79.671 Assessments Encounter Date Diagnosis (ICD Code) Assessment Notes Treatment Notes Treatment Clinical Notes Section Notes 01/15/2024 Achilles tendinitis of left lower extremity (ICD-10 - M76.62) 01/15/2024 Lesion of plantar nerve, 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 - G57.61) 01/15/2024 Other acquired deformities of left foot (ICD-10 - M21.6X2) 01/15/2024 Left foot pain (ICD-10 - M79.672) 01/15/2024 Pain in right foot (ICD-10 - M79.671) 01/15/2024 Other Following skin prep, a total of 3 ccs of a 1-1-1 mix of 0.5% marcaine plain, Kenalog, and dexamethasone sodium phosphate was injected into the patients right third interspace Plan Of Treatment Treatment Notes Assessment Notes Other Following skin prep, a total of 3 ccs of a 1-1-1 mix of 0.5% marcaine plain, Kenalog, and dexamethasone sodium phosphate was injected into the patients right third interspace Progress Notes * PARAM HOWARDOB:1955 ([age] yo F)Acc No.[id number]:01/15/2024 Patient: SIRISHA BAÑUELOS Provider: Kinza Vargas DPM :1955 A ge:68 Y S ex:Female Date:01/15/2024 Address:[address] [place], [place] [id number] Subjective: * Chief Complaints: * * Injection follow-up * HPI: H PI: Follow Up Visit P atient presents for follow up visit for neuroma 3rd interspace- right. Patient states their problem is improving. MA: EW. * ROS: G eneral / Constitutional: Patient denies c hills, fever. E ndocrine: Patient denies e xcessive thirst, frequent urination. ? C ardiovascular: Patient denies s hortness of breath, chest pain. S kin: Patient denies m ole changes. * Medical History: * Surgical History: * Hospitalization/Major Diagno stic Procedure: * Medications: Objective: * Examination: P hysical Examination: Gen: T he patient is awake, alert, well developed, well groomed and well nourished. They are in no apparent distress. . Musc: F oot structure is normal. No abnormalities noted. Muscle strength is 5/5 to all joints bilaterally. Pain on palpation of right 3rd interspace. Pain on palpation of right plantar fascia. . Derm: S kin is warm and dry, with no rashes, good skin turgor and normal hair distribution. . Neuro: G rossly intact to light touch bilateral.. Vasc: D orsalis pedis and posterior tibial pulses 2+ bilaterally. No edema noted. Capillary fill time < 3 seconds to all digits. . Assessment: * Assessment: 1. 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 A chilles tendinitis of left lower extremity - M76.62 3 . O ther acquired deformities of left foot - M21.6X2?4. L eft foot pain - M79.672 5 . P ain in right foot - M79.671 Plan: * Treatment: * Procedure Codes: 6 [address] N BLOCK INJ, PLANTAR DIGIT, Modifiers: RT * Billing Information: * Visit Code: 78754 Office Visit, Est Pt., Level 3. Modifiers: 25 * Procedure Codes: 51098 N BLOCK INJ, PLANTAR DIGIT. Modifiers: RT * Sign off status: Completed true * Provider: Kinza Vargas DPM Date: 0 01/15/2024 Generated for Gwendolyn rolle/Ritchie/Nuno on: 0 07/05/2024 02:54 PM CDT History and Physical Notes * HPI (History of Present Illness) Category Sub-Category Detail Notes Category Not es HPI Follow Up Visit Patient presents for follow up visit for neuroma 3rd interspace- right. Patient states their problem is improving. MA: EW Examination Category Sub-Category Detail Notes Category Not es X-Ray LEFT FOOT Physical Examination Gen: The patient is awake, alert, well developed, well groomed and well nourished. They are in no apparent distress. Vasc: Dorsalis pedis and p osterior tibial pulses 2+ bilaterally. No edema noted. Capillary fill time < 3 seconds to all digits. Neuro: Grossly intact to li ght touch bilateral. Musc: Foot structure is no rmal. No abnormalities noted. Muscle strength is 5/5 to all joints bilaterally. Pain on palpation of right 3rd interspace. Pain on palpation of right plantar fascia. Derm: Skin is warm and dry , with no rashes, good skin turgor and normal hair distribution.
--- OUTSIDE RECORDS SUMMARY | 2024-07-05 14:55 | XMS_ITS | Clinical Summary ---
Author Organization [facility] Ivy velasco [facility] Address [address] [place] [address] Care Team Providers Care Natural Resource Officer Name Role Phone Nguyen Palomino MD Primary Care Provider + Allergies Active Allergy Reactions Criticality Noted Date Comments Levofloxacin Headache High 11/30/2021 Metronidazole Unknown 10/16/2020 Penicillins Unknown 10/16/2020 Prednisone Unknown 11/30/2021 Medications estradioL (ESTRACE) 1 mg tablet estradiol 1 mg tablet 4 Active ergocalciferol (VITAMIN D2) 50,000 unit capsule Take 50,000 Units by mouth every 7 days. 2 Active bimatoprost (LUMIGAN) 0.03 % solution bimatoprost 0.03 % eye drops Active Active Problems Problem Noted Date Diagnosed Date Easy bruising 11/30/2021 Family History Medical History Relation Name Comments Heart Disease Sister Relation Name Status Comments Brother Alive Father Mother Sister Alive Social History Tobacco Use Types Packs/Day Years Used Date Smoking Tobacco: Never Tobacco Cessation:Counseling Given: Not Answered Alcohol Use Standard Drinks/Week Comments Yes 0 (1 standard drink = 0.6 oz pur e alcohol) Comments Unknown Sex and Gender Information Value Date Recorded Sex Assigned at Not on file Legal Sex Female 12:59 PM CDT Gender Identity Not on file Sexual Orientation Not on file Last Filed Vital Signs Vital Sign Reading Time Taken Comments Blood Pressure 141/81 12/27/2021 2:29 PM CDT Pulse 73 12/27/2021 2:29 PM CDT Temperature 36.8 C (98.2 F) 12/27/2021 2:29 PM CDT Respiratory Rate - - Oxygen Saturation 97% 12/27/2021 2:29 PM CDT Inhaled Oxygen Concentration - - Weight 69.8 kg (153 lb 14.4 oz) 12/27/2021 2:29 PM CDT Height 167.6 cm (5' 6 ) 12/27/2021 2:29 PM CDT Body Mass Index 24.84 12/27/2021 2:29 PM CDT Plan of Treatment Health Maintenance Due Date Last Done Comments DTAP/TDAP/TD VACCINES (1 - Tdap) 08/27/1974 BREAST CANCER SCREENING 1995 COLORECTAL SCREENING 08/27/2000 Colorectal Cancer Screening 08/27/2000 FIT-DNA Q 3 years 08/27/2000 FIT/FOBT Q 1 year 08/27/2000 Flex Sig/CT Colonography Q 5 years 08/27/2000 PNEUMOCOCCAL VACCINE 50+ YEA RS (1 of 1 - PCV) 08/27/2005 ZOSTER VACCINE (1 of 2) 08/27/2005 OSTEOPOROSIS SCREENING 08/27/2020 INFLUENZA VACCINE (#1) 2023 , 02/15/2021, 02/16/2020 RSV VACCINE (60+ or ) (1 - 1-dose 75+ series) 08/27/2030 Insurance MEDICARE PART A AND B Care Teams Natural Resource Officer Relationship Specialty Start Date End Date Nguyen Palomino MD [address] [place] [id number] PCP - General Family Practice 11/30/21
--- OUTSIDE RECORDS SUMMARY | 2024-07-05 14:55 | XMS_ITS | Clinical Summary ---
Author Organization [facility] Address [facility] [address] [place] [address] Care Team Providers Care Scada Engineer Name Role Phone Nguyen Palomino MD Primary Care Provider Allergies Active Allergy Reactions Criticality Noted Date Comments Levofloxacin Headache High 03/22/2014 Metronidazole Unknown 10/16/2020 Penicillins Unknown 03/22/2014 Prednisone Unknown 11/30/2021 Medications LUMIGAN 0.01 % Solution Place 1 drop into both eyes nightly at bedtime. Active estradiol (ESTRACE) 1 MG tablet Take 1 tablet (1 mg total) by mouth daily. 04/22/2023 Active vitamin D2, ergocalciferol, (DRISDOL) 1.25 mg capsule Take 1 capsule (1.25 mg total) by mouth every 7 days. Active amLODIPine (NORVASC) 5 MG tablet Take 1 tablet (5 mg total) by mouth daily. 30 tablet 6 05/26/2023 Active aspirin EC (ECOTRIN) 81 MG tablet Take 1 tablet (81 mg total) by mouth daily. 30 tablet 6 05/26/2023 Active Active Problems Problem Noted Date Diagnosed Date SOB (shortness of breath) 04/23/2023 Pure hypercholesterolemia 10/16/2020 RBBB 10/16/2020 Hyperlipidemia 02/23/2016 Abnormal glucose 2015 Fatigue 08/11/2015 Immunizations Name Administration Dates Next Due Influenza Adult (Generic) 02/14/2022,02/16/2020 Social History Tobacco Use Types Packs/Day Years Used Date Smoking Tobacco: Never Smokeless Tobacco: Never Tobacco Cessation:Counseling Given: Not Answered Alcohol Use Standard Drinks/Week Comments Yes 0 (1 standard drink = 0.6 oz pur e alcohol) [facility] Utilities Answer Date Recorded In the past 12 months has th e electric, gas, oil, or water company threatened to shut off services in your home? No 04/23/2023 Social Connection and Isolat ion Panel [NHANES] Answer Date Recorded In a typical week, how many times do you talk on the phone with family, friends, or neighbors? More than three times a week 04/23/2023 How often do you get togethe r with friends or relatives? More than three times a week 04/23/2023 How often do you attend chur ch or catholic services? Never 04/23/2023 Do you belong to any clubs o r organizations such as scientologist groups, unions, fraternal or athletic groups, or school groups? No 04/23/2023 How often do you attend meet ings of the clubs or organizations you belong to? Never 04/23/2023 Are you , , di vorced, , never , or living with a partner? 04/23/2023 AUDIT-C Answer Date Recorded Q1: How often do you have a drink containing alc ohol? Monthly or less 04/23/2023 Q2: How many drinks containi ng alcohol do you have on a typical day when you are drinking? 1 or 2 04/23/2023 Q3: How often do you have si x or more drinks on one occasion? Never 04/23/2023 Overall Financial Resource Strain (CARDIA) Answe r Date Recorded How hard is it for you to pa y for the very basics like food, housing, medical care, and heating? Not hard at all 04/23/2023 PHQ-2 Answer Date Recorded Patient Health Questionnaire-2 Score 2 04/23/2023 [facility] [place] [facility] Occupat ional Health - Occupational Stress Questionnaire Answer Date Recorded Do you feel stress - tense, restless, nervous, or anxious, or unable to sleep at night because your mind is troubled all the time - these days? Only a little 04/23/2023 Exercise Vital Sign Answer Date Recorde d On average, how many days pe r week do you engage in moderate to strenuous exercise (like a brisk walk)? 3 days 04/23/2023 On average, how many minutes do you engage in exercise at this level? 30 min 04/23/2023 Hunger Vital Sign Answer Date Recorded Within the past 12 months, y ou worried that your food would run out before you got the money to buy more. Never true 04/23/20 23 Within the past 12 months, t he food you bought just didn't last and you didn't have money to get more. Never true 04/23/2023 PRAPARE - Transportation Answer Date Re corded In the past 12 months, has l ack of transportation kept you from medical appointments or from getting medications? No 03/29 In the past 12 months, has l ack of transportation kept you from meetings, work, or from getting things needed for daily living? No 04/23/2023 Housing Stability Vital Sign Answer Freddy e Recorded In the last 12 months, was t here a time when you were not able to pay the mortgage or rent on time? No 04/23/2023 In the last 12 months, how many places have you lived? 1 04/23/2023 In the last 12 months, was t here a time when you did not have a steady place to sleep or slept in a penitentiary (including now)? No 04/23/2023 Comments No Sex and Gender Information Value Date Recorded Sex Assigned at Not on file Legal Sex Female 9:15 PM CDT Gender Identity Not on file Sexual Orientation Not on file Last Filed Vital Signs Vital Sign Reading Time Taken Comments Blood Pressure 130/70 06/05/2023 12:17 PM [employer] Pulse 79 06/05/2023 12:17 PM [employer] Temperature 36.3 C (97.3 F) 04/24/2023 4:17 AM [employer] Respiratory Rate 21 04/24/2023 11:00 AM [employer] Oxygen Saturation 99% 06/05/2023 12:17 PM [employer] Inhaled Oxygen Concentration - - Weight 70.3 kg (155 lb) 06/05/2023 12:17 PM [employer] Height 165.1 cm (5' 5 ) 06/05/2023 12:17 PM [employer] Body Mass Index 25.79 06/05/2023 12:17 PM [employer] Plan of Treatment Health Maintenance Due Date Last Done Comments Colorectal Cancer Screening Colonoscopy (10 Years) 1955 Hepatitis C 08/27/1973 DTaP, Tdap and Td Vaccines (1 - Tdap) 08/27/1974 Mammogram Screening 1995 Zoster Vaccines (1 of 2) 08/27/2005 Annual Medicare Wellness Visit 08/27/2020 Dexa Scan (General) 08/27/2020 Pneumococcal Vaccine: 65+ Years (1 of 1 - PCV) 08/27/2020 COVID-19 Vaccine ( - season) 2023 01/30/2023, 02/21/2022, 03/02/2021, Additional history exists Influenza Adult (#1) 2024 02/14/2022, 02/16/20 20 RSV Immunization or 60+ Years (1 - 1-dose 75+ series) 08/27/2030 Meningococcal B Vaccine Aged Out No l onger eligible based on patient's age to complete this topic Meningococcal Vaccine Aged Out No naeem ramy eligible based on patient's age to complete this topic RSV Immunizations Under 20 Months Aged Out No longer eligible based on patient's age to complete this topic Insurance MEDICARE Advance Directives * Full Code (Latest Code Status on File) Date Activated Date Inactivated Comments 04/23/2023 1:08 PM 04/24/2023 6:01 PM Care Teams Scada Engineer Relationship Specialty Start Date End Date Nguyen Palomino MD [address] [place] [address] PCP - General FAMILY PRACTICE 09/16/19
--- OUTSIDE RECORDS SUMMARY | 2024-07-05 14:55 | XMS_ITS | Encounter Summary ---
Author Organization [facility] Address [address] [place] [address] Care Team Providers Care Girls Tennis Coach Name Role Phone Unavailable Primary Care Provider Unavailabl e Encounter Details Date Type Department Care Team (Late st Contact Info) Description 08/13/2021 Lab Requisition [facility] [address] [place] [address] Becky Garcia MD [address] [place], [place] [id number] Illness, unspecified Social History Tobacco Use Types Packs/Day Years Used Date Smoking Tobacco: Never Assessed Sex and Gender Information Value Date Recorded Sex Assigned at Not on file Gender Identity Not on file Sexual Orientation Not on file documented as of this encounter Plan of Treatment Not on file documented as of this encounter Procedures Procedure Name Priority Date/Time Associated Diagnosis Comments PATH CONSULT ON REFERRED CASE Routine 08/13/2021 1:49 PM CDT Illness, unspecified documented in this encounter Results * PATH CONSULT ON REFERRED CASE (08/13/2021 1:49 PM CDT) Final Diagnosis URINE/VOIDED (OSC: [id number]; 08/09/2021): - Less than optimal due to abundant squamous cell contamination - Negative for high grade urothelial carcinoma - Rare urothelia cells 08/14/2021 4:23 PM CDT [facility] Microscopic Description and Comment Performed. 08/14/2021 4:23 PM CDT [facility] Clinical History HEMATURIA 08/14/2021 4:23 PM CDT [facility] Materials Received Prepared slide received from [facility] [id number]. All material will be returned. 08/14/2021 4:23 PM CDT [facility] Disclaimer The performance characteristics of all immunohistochemical and indirect immunofluorescence stains (if any) cited in this report were determined by the Histopathology Laboratory of [facility]. Some of these tests were developed by [...] attending (teaching) pathologist. 08/14/2021 4:23 PM CDT [facility] Case Report Surgical Pathology Report Case: [id number] Authorizing Provider: Becky Garcia MD Collected: 08/13/2021 01:49 PM Ordering Location: [facility] Received: 08/13/2021 01:49 PM Pathologist: Jen Mcgee MD Specimen: Slide Consultation 08/14/2021 4:23 PM CDT [facility] Embedded Images 08/14/2021 4:23 PM CDT [facility] Pathology/Cytolo gy SURGICAL PATHOLOGY CONSULTATION AND REPORT ON REFERRED SLIDES PREPARED ELSEWHERE / Unknown 08/13/2021 1:49 PM CDT 08/13/2021 1:49 PM CDT Becky Garcia MD LAB - PATHOLOGY/CYTO LOGY ORDERABLES Performing Organization Address City/State/[facility] Co de Phone Number [facility] [address] [place], [place] [address] [place] [address] documented in this encounter Visit Diagnoses Diagnosis Illness, unspecified documented in this encounter
--- OUTSIDE RECORDS SUMMARY | 2024-07-05 14:55 | XMS_ITS ---
Author Organization [facility] Address [address] [place], [place] [address] Care Team Providers Care Bridge Worker Name Role Phone ROGERIO VARGAS Unavailable [phone] Nguyen Palomino Unavailable Unavailable REASON FOR VISIT Right foot and toes neuroma Medications Medication SIG (Take, Route, Frequency, Duration) Notes Start Date End Date Status Medrol 4 MG as directed Orally 11/22/2022 Active Medrol 4 MG as directed Orally 01/20/2023 Active Vital Signs Height 65.00 in 03/11/2024 Weight 148 lbs 03/11/2024 BMI 24.63 kg/m2 03/11/2024 Height-cm 165.10 cm 03/11/2024 Weight-kg 67.13 kg 03/11/2024 Encounters Encounter Location Date Provider Diagnosis [facility] [address] [place], [place] [id number] 03/11/2024 ROGERIO VARGAS Achilles tendinitis of left lower extremity M76.62 ; Lesion of plantar nerve, 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 ; Other acquired deformities of left foot M21.6X2 ; Left foot pain M79.672 and Pain in right foot M79.671 Assessments Encounter Date Diagnosis (ICD Code) Assessment Notes Treatment Notes Treatment Clinical Notes Section Notes 03/11/2024 Achilles tendinitis of left lower extremity (ICD-10 - M76.62) 03/11/2024 Lesion of plantar nerve, 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 - G57.61) 03/11/2024 Other acquired deformities of left foot (ICD-10 - M21.6X2) 03/11/2024 Left foot pain (ICD-10 - M79.672) 03/11/2024 Pain in right foot (ICD-10 - M79.671) 03/11/2024 Other Following skin prep, a total [...] patients right third interspace Progress Notes * ANITANING SALESGLENOB:1955 ([age] yo F)Acc No.[id number]:03/11/2024 Patient: SIRISHA BAÑUELOS Provider: Kinza Vargas DPM :1955 A ge:68 Y S ex:Female Date:03/11/2024 Address:[address] [place], [place] [id number] Subjective: * Chief Complaints: * R ight foot and toes neuroma * HPI: H PI: Follow Up Visit P atient presents for follow-up visit for right neuroma pain. She states she got an injection in December, and it helped for a while. She started having pain again for two weeks. She is wanting to get another injection today. MA: sea. * ROS: G eneral / Constitutional: Patient denies c hills, fever. E ndocrine: Patient denies e xcessive thirst, frequent urination. ? C ardiovascular: Patient denies s hortness of breath, chest pain. S kin: Patient denies m ole changes. * Medical History: * Surgical History: * Hospitalization/Major Diagno stic Procedure: * Social History: M igrated Social History: M igrated Social History: Smoking Status : Former tobacco user , History of tobacco use :. * Medications: T akingMedrol 4 MG Tablet Therapy Pack as directed Orally Medrol 4 MG Tablet Therapy Pack as directed Orally Taking Medrol 4 MG Tablet Therapy Pack as directed Orally Taking Medrol 4 MG Tablet Therapy Pack as directed Orally Objective: * Vitals: W t:148lbs, Wt-k.13 kg, Ht: 65.00 in, Ht-cm: 165.10 cm, BMI:24.63Index, Body Surface Area: 1.75. * Examination: P hysical Examination: Gen: T [...] ther acquired deformities of left foot - M21.6X2 4 . L eft foot pain - M79.672 5 . P ain in right foot - M79.671 Plan: * Treatment: * Procedure Codes: 6 4455 [address] BLOCK INJ, PLANTAR DIGIT, Modifiers: RT * Billing Information: * Visit Code: 80977 Office Visit, Est Pt., Level 3. Modifiers: 25 * Procedure Codes: 51359 N BLOCK INJ, PLANTAR DIGIT. Modifiers: RT * TING TEACHER Sign off status: Completed true * Provider: Kinza Vargas DPM Date: 05/11/2023 Generated for Gwendolyn rolle/Ritchie/Nuno on: 0 07/05/2024 02:55 PM CDT History and Physical Notes * HPI (History of Present Illness) Category Sub-Category Detail Notes Category Not es HPI Follow Up Visit Patient presents for follow-up visit for right neuroma pain. She states she got an injection in December, and it helped for a while. She started having pain again for two weeks. She is wanting to get another injection today. MA: sea Examination Category Sub-Category Detail Notes Category Not [...]
--- OUTSIDE RECORDS SUMMARY | 2024-07-05 14:55 | XMS_ITS | Referral Summary ---
Author Organization [facility] Address [address] [place] [address] Care Team Providers Care Flight Test Mechanic Name Role Phone Unavailable Primary Care Provider Unavailabl e Source Comments [facility],non-owned Affiliates and Associated Physician Practices is amultiple site organization consisting of ambulatory clinics and hospital sitesin [place], [place], [place] and [place]. This disclosure is being madepursuant to the Care Everywhere program and may not contain all information available regarding this patient. Last updated 18.[facility] Social History Tobacco Use Types Packs/Day Years Used Date Smoking Tobacco: Never Assessed Sex and Gender Information Value Date Recorded Sex Assigned at Not on file Gender Identity Not on file Sexual Orientation Not on file Plan of Treatment Not on file
--- OUTSIDE RECORDS SUMMARY | 2024-07-05 14:55 | XMS_ITS | Data Portability ---
Author Organization [facility], Main Office Address [address] [place] [address] Care Team Providers Care Owner Oral Surgeon Name Role Phone MAURICIO PALOMINO Primary Care Provider MAURICIO PALOMINO Referring Provider [phone] Assessment Encounter Date Assessment Date Assessment LastModified by Organization Details LastModified Time 11/04/2023 11/04/2023 Cyst anterior neck. Options discussed with patient. We will schedule for excision under local anesthesia here in the office. Risks and benefits were discussed. Risks include bleeding, infection and numbness Not available 11/04/2023 11:33:06 12/02/2023 12/02/2023 Sebaceous cyst of anterior neck excised today in the office. Skin closed subcuticularl y. RTC if concerns arise. Specimen sent to pathology for confirmation. Likely benign. Not available 12/02/2023 13:01:36 Plan of Treatment Reminders Order Date Submit Date Provider Last Modified By Organization Details Last Modified Time Details Appointments Any 15 2024 08:30A Yassine matias MD Not available Not available Not available Lab vitamin D, 25-hydrox y, total, serum 2023 024 [email or web address] [facility] (Lab), [address] [place], [address], 06/03/2024 12:18:11 lipid panel, serum 2023 024 [facility] (Lab), [address] [place], [address], 06/14/2024 12:47:58 CBC w/ auto diff [email or web address] [place] [address] (Lab), [address] [place], [address], 06/03/2024 12:18:11 TSH, serum or plasma [email or web address] [place] [address] (Lab), [address] [place], [address], 06/03/2024 12:18:11 CMP, serum or plasma [address] (Lab), [address] [place], [address], 06/14/2024 12:47:58 ferritin, serum or plasma 2023 024 [facility] Not available 2023 20:24:24 iron + total iron-bind ing capacity (TIBC), serum 2023 024 [facility] Not available 2023 19:49:42 CBC w/ auto diff 2023 024 [facility] Not available 2023 19:36:44 vitamin D, 25-hydrox y, total, serum 2023 024 [facility] Not available 2023 21:27:05 TSH, serum or plasma 2023 024 [facility] Not available 2023 20:21:57 vitamin B12, serum 2023 024 [facility] Not available 2023 20:33:00 folate, serum 2023 024 [facility] Not available 2023 20:33:04 BMP, serum or plasma 2023 024 [facility] Not available 2023 19:48:37 Referral urologist referral 2023 024 [email or web address] Yusuf Zurita MD, [address] [facility] [address], [place], [address], 06/21/2024 17:54:05 general surgeon referral 2023 024 [email or web address] Jacob Sethi MD, [address], [place], [address], 11/25/2023 09:16:46 Procedures None recorded. Surgeries None recorded. Imaging None recorded. Medication Orders None recorded. Patient TargetsNo targets recorded. Patient InstructionsNo instructions recorded. Reason for Referral Urologist Referral for Micro scopic hematuria Referring Physician: Marion Palm, Internal Medicine, Encounter Date: 10/27/2023 General Surgeon Referral for Skin lesion Referring Physician: Marion Palm, Internal Medicine, Encounter Date: 10/27/2023 Results Created Date Observation Date Name Description Value Unit Range Abnormal Flag Note LastModifiedBy Organization Detail LastModifiedTime 04/01/2004/01/2023 URINA LYSIS W/REF AVINASH CULTU RE color LIGHT- YELLOW Not Available [facility] (Lab) [address] [place], [address], 04/01/2023 19:51:45 04/01/2004/01/2023 URINA LYSIS W/REF AVINASH CULTU RE clarity CLEAR Not Available [facility] (Lab) [address] [place], [address], 04/01/2023 19:51:45 04/01/20 23 04/01/2023 URINA LYSIS W/REF AVINASH CULTU RE sp grav 1.020 1.001- 1.035 Not Available [facility] (Lab) [address] [place], [address], 04/01/2023 19:51:45 04/01/20 23 04/01/2023 URINA LYSIS W/REF AVINASH CULTU RE pH 6.0 pH_un its 5.0-9. 0 Not Available [facility] (Lab) [address] [place], [address], 04/01/2023 19:51:45 04/01/20 23 04/01/2023 URINA LYSIS W/REF AVINASH CULTU RE leukocytes NEGATI VE radha/u L negati ve- Not Available [facility] (Lab) [address] [facility] [place], [address], 04/01/2023 19:51:45 04/01/20 23 04/01/2023 URINA LYSIS W/REF AVINASH CULTU RE nitrite NEGATI VE negati ve- Not Available [facility] (Lab) [address] [place], [address], 04/01/2023 19:51:45 04/01/20 23 04/01/2023 URINA LYSIS W/REF AVINASH CULTU RE protein NEGATI VE mg/dL negati ve-15 Not Available [facility] (Lab) [address] [place], [address], 04/01/2023 19:51:45 04/01/20 23 04/01/2023 URINA LYSIS W/REF AVINASH CULTU RE glucose NORMAL mg/dL normal - Not Available [facility] (Lab) [address] [place], [address], 04/01/2023 19:51:45 04/01/20 23 04/01/2023 URINA LYSIS W/REF AVINASH CULTU RE ketones NEGATI VE mg/dL negati ve- Not Available [facility] (Lab) [address] [place], [address], 04/01/2023 19:51:45 04/01/20 23 04/01/2023 URINA LYSIS W/REF AVINASH CULTU RE urobilinogen NORMAL mg/dL normal -1 Not Available [facility] (Lab) [address] [place], [address], 04/01/2023 19:51:45 04/01/20 23 04/01/2023 URINA LYSIS W/REF AVINASH CULTU RE bilirubin NEGATI VE mg/dL negati ve- Not Available [facility] (Lab) [address] [place], [address], 04/01/2023 19:51:45 04/01/20 23 04/01/2023 URINA LYSIS W/REF AVINASH CULTU RE blood 50 jeff/u L negati ve- abnormal Not Available [facility] (Lab) [address] [place], [address], 04/01/2023 19:51:45 04/01/20 23 04/01/2023 URINA LYSIS W/REF AVINASH CULTU RE white blood cells 0-8 per_h pf 0-8 Not Available [facility] (Lab) [address] [place], [address], 04/01/2023 19:51:45 04/01/20 23 04/01/2023 URINA LYSIS W/REF AVINASH CULTU RE red blood cells 11-20 per_h pf 0-4 abnormal Not Available [facility] (Lab) [address] [place], [address], 04/01/2023 19:51:45 04/01/20 23 04/01/2023 URINA LYSIS W/REF AVINASH CULTU RE bacteria OCCASI ONAL per_h pf Not Available [facility] (Lab) [address] [place], [address], 04/01/2023 19:51:45 04/01/20 23 04/01/2023 URINA LYSIS W/REF AVINASH CULTU RE epithelial cells PRESEN T abnormal Not Available [facility] (Lab) [address] [place], [address], 04/01/2023 19:51:45 04/01/20 23 04/01/2023 URINA LYSIS W/REF AVINASH CULTU RE mucus NONE Not Available [facility] (Lab) [address] [place], [address], 04/01/2023 19:51:45 04/01/20 23 04/01/2023 URINA LYSIS W/REF AVINASH CULTU RE casts NONE none seen- Not Available [facility] (Lab) [address] [place], [address], 04/01/2023 19:51:45 04/01/20 23 04/01/2023 URINA LYSIS W/REF AVINASH CULTU RE crystals NONE none seen- Not Available [facility] (Lab) [address] [place], [address], 04/01/2023 19:51:45 04/01/20 23 04/01/2023 URINA LYSIS W/REF AVINASH CULTU RE yeast NONE SEEN none seen- Not Available [facility] (Lab) [address] [place], [address], 04/01/2023 19:51:45 04/01/20 23 04/01/2023 URINA LYSIS W/REF AVINASH CULTU RE RBC morphology DYSMOR PHIC RBCS abnormal Not Available [facility] (Lab) [address] [place], [address], 04/01/2023 19:51:45 04/01/20 23 04/01/2023 URINA LYSIS W/REF AVINASH CULTU RE squamous epithelial cells FEW abnormal Not Available [facility] (Lab) [address] [place], [address], 04/01/2023 19:51:45 04/01/20 23 04/01/2023 urina lysis , dipst ick Leukocytes (reference range: negative radha/ l) Negati ve Not Available [facility] [address], [place], [address], 04/01/2023 12:18:17 04/01/20 23 04/01/2023 urina lysis , dipst ick Nitrite (reference rage: negative mg/dl) negati ve Not Available [address], [place], [address], 04/01/2023 12:18:17 04/01/20 23 04/01/2023 urina lysis , dipst ick Urobilinogen (reference range: 0.2-1 mg/dl) 0.2 Not Available [address], [place], [address], 04/01/2023 12:18:17 04/01/2004/01/2023 urina lysis , dipst ick Protein (reference range: negative mg/dl) Negati ve Not Available [address], [place], [address], 04/01/2023 12:18:17 04/01/2004/01/2023 urina lysis , dipst ick pH (reference range: 5-7) 6.0 Not Available [address], [place], [address], 04/01/2023 12:18:17 04/01/20 23 04/01/2023 urina lysis , dipst ick Blood (reference range: negative Jeff/ l) Small Not Available [address], [place], [address], 04/01/2023 12:18:17 04/01/20 23 04/01/2023 urina lysis , dipst ick Specific [place] (reference range: 1.005-1.030) 1.025 Not Available [address], [place], [address], 04/01/2023 12:18:17 04/01/20 23 04/01/2023 urina lysis , dipst ick Ketone (reference range: negative mg/dl) Negati ve Not Available [address], [place], [address], 04/01/2023 12:18:17 04/01/20 23 04/01/2023 urina lysis , dipst ick Bilirubin (reference range: negative mg/dl) Negati ve Not Available [address], [place], [address], 04/01/2023 12:18:17 04/01/20 23 04/01/2023 urina lysis , dipst ick Glucose (reference range: negative mg/dl) Negati ve Not Available [address], [place], [address], 04/01/2023 12:18:17 04/01/20 23 04/01/2023 urina lysis , dipst ick Appearance Clear Not Available [address], [place], [address], 04/01/2023 12:18:17 04/01/20 23 04/01/2023 urina lysis , dipst ick Color Yellow Not Available [address], [place], [address], 04/01/2023 12:18:17 08/28/19 24 2023 CBC/C OMPLE TE BLD COUNT W/DIF F white blood cells 6.2 x10'3 /uL 4.2-10 .8 Not Available [facility] (Lab) [address] [place], [address], 2023 19:36:44 08/28/19 24 2023 CBC/C OMPLE TE BLD COUNT W/DIF F red blood cells 4.54 x10'6 /uL 3.80-5 .20 Not Available [facility] (Lab) [address] [place], [address], 2023 19:36:44 08/28/19 24 2023 CBC/C OMPLE TE BLD COUNT W/DIF F hemoglobin 13.0 g/dL 12.0-1 5.6 Not Available [facility] (Lab) [address] [place], [address], 2023 19:36:44 08/28/19 24 2023 CBC/C OMPLE TE BLD COUNT W/DIF F hematocrit 39.5 % 35.7-4 5.7 Not Available [facility] (Lab) [address] [place], [address], 2023 19:36:44 08/28/19 24 2023 CBC/C OMPLE TE BLD COUNT W/DIF F mean red cell volume 87.0 fL 82.0-9 9.0 Not Available [facility] (Lab) [address] [place], [address], 2023 19:36:44 08/28/19 24 2023 CBC/C OMPLE TE BLD COUNT W/DIF F mean red cell hemoglobin 28.6 pg 27.0-3 3.0 Not Available [facility] (Lab) [address] [place], [address], 2023 19:36:44 08/28/19 24 2023 CBC/C OMPLE TE BLD COUNT W/DIF F mean RBC HGB concentratio n 32.9 g/dL 31.0-3 6.0 Not Available [facility] (Lab) [address] [place], [address], 2023 19:36:44 08/28/19 24 2023 CBC/C OMPLE TE BLD COUNT W/DIF F red cell distribution width 14.1 % 11.8-1 5.5 Not Available [facility] (Lab) [address] [place], [address], 2023 19:36:44 08/28/19 24 2023 CBC/C OMPLE TE BLD COUNT W/DIF F platelets 294 x10'3 /uL 150-40 0 Not Available [facility] (Lab) [address] [place], [address], 2023 19:36:44 08/28/19 24 2023 CBC/C OMPLE TE BLD COUNT W/DIF F mean platelet volume 10.4 fL 9.0-12 .4 Not Available [facility] (Lab) [address] [place], [address], 2023 19:36:44 08/28/19 24 2023 CBC/C OMPLE TE BLD COUNT W/DIF F neutrophils 61.4 % 39.0-7 2.0 Not Available [facility] (Lab) [address] [place], [address], 2023 19:36:44 08/28/19 24 2023 CBC/C OMPLE TE BLD COUNT W/DIF F lymphocytes 30.8 % 16.0-4 7.0 Not Available [facility] (Lab) [address] [place], [address], 2023 19:36:44 08/28/19 24 2023 CBC/C OMPLE TE BLD COUNT W/DIF F monocytes 5.9 % 5.0-12 .0 Not Available [facility] (Lab) [address] [place], [address], 2023 19:36:44 08/28/19 24 2023 CBC/C OMPLE TE BLD COUNT W/DIF F eosinophils 1.4 % 1.0-7. 0 Not Available [facility] (Lab) [address] [place], [address], 2023 19:36:44 08/28/19 24 2023 CBC/C OMPLE TE BLD COUNT W/DIF F basophils 0.3 % 0.0-2. 0 Not Available [facility] (Lab) [address] [place], [address], 2023 19:36:44 08/28/19 24 2023 CBC/C OMPLE TE BLD COUNT W/DIF F immature granulocytes 0.2 % 0.00-0 .50 Not Available [facility] (Lab) [address] [place], [address], 2023 19:36:44 08/28/19 24 2023 CBC/C OMPLE TE BLD COUNT W/DIF F neutrophils, absolute count 3.83 x10'3 /uL 1.5-8. 0 Not Available [facility] (Lab) [address] [place], [address], 2023 19:36:44 08/28/19 24 2023 CBC/C OMPLE TE BLD COUNT W/DIF F lymphocytes, absolute count 1.92 x10'3 /uL 1.07-3 .43 Not Available [facility] (Lab) [address] [place], [address], 2023 19:36:44 08/28/19 24 2023 CBC/C OMPLE TE BLD COUNT W/DIF F monocytes, absolute count 0.37 x10'3 /uL 0.29-0 .99 Not Available [facility] (Lab) [address] [place], [address], 2023 19:36:44 08/28/19 24 2023 CBC/C OMPLE TE BLD COUNT W/DIF F eosinophils, absolute count 0.09 x10'3 /uL 0.02-0 .53 Not Available [facility] (Lab) [address] [place], [address], 2023 19:36:44 08/28/19 24 2023 CBC/C OMPLE TE BLD COUNT W/DIF F basophils, absolute count 0.02 x10'3 /uL 0.01-0 .08 Not Available [facility] (Lab) [address] [place], [address], 2023 19:36:44 08/28/19 24 2023 CBC/C OMPLE TE BLD COUNT W/DIF F immature granulocytes ,absolute 0.01 x10'3 /uL 0.00-0 .05 Not Available [facility] (Lab) [address] [place], [address], 2023 19:36:44 08/28/19 24 2023 CBC/C OMPLE TE BLD COUNT W/DIF F nucleated red blood cells 0.0 % -0 Not Available [facility] (Lab) [address] [place], [address], 2023 19:36:44 08/28/19 24 2023 CBC/C OMPLE TE BLD COUNT W/DIF F NRBC# 0.00 x10'3 /uL Not Available [facility] (Lab) [address] [place], [address], 2023 19:36:44 08/28/19 24 2023 VITAM IN D 25-HY DROXY vd25oh 69.2 NG/mL 30-100 Vitam in D Statu s: Defic ient: <20 ng/mL Insuf ficie nt: 20-29 ng/mL Suffi cient : 30-10 0 ng/mL Not Available [facility] (Lab) [address] [place], [address], 2023 19:43:07 08/28/19 24 2023 BASIC METAB OLIC PANEL sodium 136 mmol/ L 137-14 5 low Not Available [facility] (Lab) [address] [place], [address], 2023 19:48:37 08/28/19 24 2023 BASIC METAB OLIC PANEL potassium 4.0 mmol/ L 3.5-5. 1 Not Available [facility] (Lab) [address] [place], [address], 2023 19:48:37 08/28/19 24 2023 BASIC METAB OLIC PANEL chloride 105 mmol/ L 98-107 Not Available [facility] (Lab) [address] [place], [address], 2023 19:48:37 08/28/19 24 2023 BASIC METAB OLIC PANEL carbon dioxide 23 mmol/ L 22-30 Not Available [facility] (Lab) [address] [place], [address], 2023 19:48:37 08/28/19 24 2023 BASIC METAB OLIC PANEL anion gap 12.0 mmol/ L 14-22 low Not Available [facility] (Lab) [address] [place], [address], 2023 19:48:37 08/28/19 24 2023 BASIC METAB OLIC PANEL glucose 90 mg/dL 70-99 Not Available [facility] (Lab) [address] [place], [address], 2023 19:48:37 08/28/19 24 2023 BASIC METAB OLIC PANEL BUN 13 mg/dL 8-19 Not Available [facility] (Lab) [address] [place], [address], 2023 19:48:37 08/28/19 24 2023 BASIC METAB OLIC PANEL creatinine 0.81 mg/dL 0.66-1 .25 Not Available [facility] (Lab) [address] [place], [address], 2023 19:48:37 08/28/19 24 2023 BASIC METAB OLIC PANEL GFR >60 Refer ence Range : Dike ge GFR Healt hy Adult : >60 mL/mi n/1.7 3 m2 Chron ic Kidne y Disea se: 15-60 mL/mi n/1.7 3 m2 Kidne y Failu re: <15/m L/min /1.73 m2 www.n iddk. nih.g ov The MDRD study equat ion has not been valid ated in child abdoul <18 years of age; pregn ant women ; the elder ly >85 years of age; or in some racia l or ethni c subgr oups, such as Hisor nics. Outsi de the valid ated isaac eters , estim ated GFR is less accur ate, requi ring clini monse judgm ent on a case- by-ca se basis . Clini monse inter preta tion for other races and ages must be made by the clini emili. The MDRD study equat ion has not been valid ated for the evalu ation of serum creat inine relat ed to nutri clraissa l statu s or medic ation usage . For perso ns <18 years of age, a pedia tric GFR calcu lator is avail able on the NKF websi te: https ://torrie waldron.vazquez carballo/pr romeoess ional s/kdo qi/gf r_cal culat or Not Available [facility] (Lab) [address] [place], [address], 2023 19:48:37 08/28/19 24 2023 BASIC METAB OLIC PANEL calcium 9.6 mg/dL 8.4-10 .2 Not Available [facility] (Lab) [address] [place], [address], 2023 19:48:37 08/28/19 24 2023 IRON/ TIBC PANEL total iron binding capacity 387 mcg/d L 265-47 5 Not Available [facility] (Lab) [address] [place], [address], 2023 20:06:51 08/28/19 24 2023 IRON/ TIBC PANEL % transferrin saturation 20 % 20-55 Not Available [facility] (Lab) [address] [place], [address], 2023 20:06:51 08/28/19 24 2023 IRON/ TIBC PANEL unsaturated iron bind capacity 311 mcg/d L 126-38 2 Not Available [facility] (Lab) [address] [place], [address], 2023 20:06:51 08/28/19 24 2023 IRON/ TIBC PANEL iron 76 mcg/d L 42-175 Not Available [facility] (Lab) [address] [place], [address], 2023 20:06:51 08/28/19 24 2023 TSH thyroid-stim ulating hormone 1.690 uIU/m L 0.465- 4.680 Not Available [facility] (Lab) [address] [place], [address], 2023 20:21:57 08/28/19 24 2023 ISABELL TIN ferritin 11 NG/mL 11.1-2 64 low Not Available [facility] (Lab) [address] [place], [address], 2023 20:24:24 08/28/19 24 2023 VITAM IN B12 (YAW BANDAR ) vb12 599 pg/mL 239-93 1 Not Available [facility] (Lab) [address] [place], [address], 2023 20:33:00 08/28/19 24 2023 FOLAT E, SERUM /PLAS MA folate 17.6 NG/mL 2.76-2 0.0 Not Available [facility] (Lab) [address] [place], [address], 2023 20:33:04 Result Notes None recorded. Problems Name Problem SNOMED Code Status Onset Date Resolution Date Notes Provider Name and Address Organization Details Recorded Time Plantar fasciitis of right foot 1986386260913 9101 Active 2020 Not Available [facility] 3 08:09:04 Glaucoma 06032056 Active 2018 Not Available [facility] 3 08:09:04 Malignant tumor of breast 704392800 Active 2018 1996 Not Available [facility] 3 08:09:04 Iron deficiency 74509398 Active 2020 Not Available [facility] 3 08:09:04 Hyperlipid emia 55578313 Active 2019 Not Available [facility] 3 08:09:04 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 Mauricio Palomino MD [address], [place], [address] , [employer] [facility] [employer] 3 14:25:18 Upper respirator y infection 56372105 Active 2022 Mauricio Palomino MD [address], [place], [address] , [facility] 3 14:28:03 Cervical spondylosi s 683547994 Active 2022 Mauricio Palomino MD [address], [place], [address] , [facility] 3 10:17:30 Fatigue 96970772 Active 2022 Mauricio Palomino MD [address], [place], [address] , [facility] 3 16:10:22 Vitamin D deficiency 84624452 Active 2022 Mauricio Palomino MD [address], [place], [address] , [facility] 3 16:10:56 Degenerati on of cervical interverte bral disc 82498349 Active 2022 Mauricio Palomino MD [address], [place], [address] , [facility] 3 16:23:11 Dysuria 78117190 Active 2022 Sera Cordova RN [email or web address] [place] [facility] 3 12:18:18 Iron deficiency anemia 91283720 Active 2023 Mauricio Palomino MD [address], [place], [address] , [facility] 4 13:37:12 Anemia 169353439 Active 2023 Marion dinero MD [address], [place], [address] , [facility] 4 19:54:31 Malignant tumor of breast 351622338 Active 2023 Marion dinero MD [address], [place], [address] , [facility] 4 11:05:45 Pain in right hand 1875913393611 09 Active 2023 Marion dinero MD [address], [place], [address] , [facility] 4 11:06:58 Microscopi c hematuria 453250380 Active 2023 Marion dinero MD [address], [address] , [facility] 4 11:08:02 Skin lesion 36233095 Active 2023 Marion dinero MD [address], [address] , [facility] [email or web address] [facility] 4 11:24:27 Epidermoid cyst of skin 096724977 Active 2023 Jacob farrell MD [address] [address], [place], [address] , [facility] 4 15:01:42 Abdominal pain 54411074 Active 2023 Emperatriz Perez CMA [facility], [facility] [facility] 4 16:36:49 Problem Notes None recorded. Procedures Surgical History Date Name Laterality Status Provider Name and Address Organization Details Recorded Time 4 Excision Cyst Multilayer completed Jacob jj MD [address] [address], [place], [address], [facility] 12/02/2023 13:00:15 3 Medicare Wellness CPT Code, subsequent completed Roel Armijo RN [facility] 02/20/2023 15:57:26 thumb surgery completed KANA Spain OR [email or web address] [facility] 10/27/2023 10:29:52 Imaging Results None recorded. Procedure Notes None recorded. Medical Equipment None Reported. Allergies Allergen ID Allergen Name Allergen Category Reaction Reaction Severity Criticality Documentation Date Start Date Code Code System Note Provider Name and Address Organization Details Recorded Time 89169 prednison e medicatio n Not available Not available Not available 06/26/2022 8640 RxNorm heart palpa tions Not Available [facility] 3 08:12:47 92645 Levaquin medicatio n headache severe Not available 06/26/2022 06816 2 RxNorm Not Available [facility] 3 08:12:48 23409 Product containin g penicilli n (product) medicatio n rash Not available Not available 06/26/2022 47676 8001 SNOMED Not Available [facility] 3 08:12:48 Medications Name Sig Start Date Stop Date Status Note LastModified by Organization Details LastModified Time amoxicillin 500 mg capsule TAKE ONE CAPSULE BY MOUTH EVERY 6 HOURS FOR 7 DAYS 02/20 completed Not Available Not Available Not Available latanoprost 0.005 % eye drops 12/17 completed Not Available Not Available Not Available atorvastati n 40 mg tablet 08/27 completed Not Available Not Available Not Available Estring 2 mg (7.5 mcg/24 hour) vaginal ring Insert 1 vaginal ring by vaginal route. 12/17 completed Not Available Not Available Not Available doxycycline hyclate 100 mg capsule TAKE 1 CAPSULE BY MOUTH TWICE DAILY FOR 10 DAYS 02/20 completed Not Available Not Available Not Available clindamycin HCl 300 mg capsule 12/17 completed Not Available Not Available Not Available ammonium lactate 12 % lotion apply to both feet daily as needed 08/27 completed Not Available Not Available Not Available azithromyci n 250 mg tablet 12/17 completed Not Available Not Available Not Available ibuprofen 800 mg tablet TAKE 1 TABLET BY MOUTH THREE TIMES DAILY 10/26 completed Not Available Not Available Not Available fluconazole 150 mg tablet TAKE 1 TABLET BY MOUTH NOW FOR 1 DOSE 02/20 completed Not Available Not Available Not Available valacyclovi r 1 gram tablet Take 1 tablet every 12 hours by oral route for 7 days. active Not Available Not Available No t Available hydrocodone 5 mg-acetamin ophen 325 mg tablet TAKE 1-2 TABLETS BY MOUTH EVERY 4-6 HOURS NEEDED 10/26 completed Not Available Not Available Not Available meloxicam 15 mg tablet TAKE 1 TABLET BY MOUTH DAILY active Not Available Not Available No t Available sucralfate 1 gram tablet 12/17 completed Not Available Not Available Not Available phenazopyri dine 200 mg tablet TAKE 1 TABLET BY MOUTH EVERY DAY NEEDED 02/20 completed Not Available Not Available Not Available metronidazo le 0.75 % (37.5 mg/5 gram) vaginal gel INSERT 1 APPLICATO RFUL VAGINALLY AT BEDTIME FOR 5 DAYS 02/19 completed Not Available Not Available Not Available prednisone 20 mg tablet 2 po qday with food active Not Available Not Available No t Available terconazole 0.8 % vaginal cream I 1 APL VAGINALLY HS FOR 3 DAYS 08/27 completed Not Available Not Available Not Available metronidazo le 250 mg tablet 06/17 completed Not Available Not Available Not Available travoprost 0.004 % eye drops INSTILL 1 DROP IN BOTH EYES EVERY NIGHT 10/26 completed Not Available Not Available Not Available bimatoprost 0.03 % eye drops 10/26 completed Not Available Not Available Not Available amlodipine 5 mg tablet 08/27 completed Not Available Not Available Not Available ciprofloxac in 500 mg tablet TAKE 1 TABLET BY MOUTH TWICE DAILY 02/20 completed Not Available Not Available Not Available sulfamethox azole 800 mg-trimetho prim 160 mg tablet TAKE 1 TABLET BY MOUTH TWICE DAILY FOR SYMPTOMS OF UTI. CALL IF SYMPTOMS PERSIST active Not Available Not Available No t Available aspirin 81 mg tablet,otm yed release TAKE 1 TABLET BY MOUTH ONCE DAILY. 08/27 completed Not Available Not Available Not Available tramadol 50 mg tablet TAKE 1-2 TABLETS BY MOUTH EVERY 4-6 HOURS NEEDED. 10/26 completed Not Available Not Available Not Available amoxicillin 500 mg tablet TAKE 1 TABLET BY MOUTH THREE TIMES DAILY UNTIL ALL TAKEN 02/19 completed Not Available Not Available Not Available Macrobid 100 mg capsule active Not Available Not Available Not Available amoxicillin 875 mg tablet Take 1 tablet every 12 hours by oral route for 7 days. active Not Available Not Available No t Available estradiol 1 mg tablet TAKE 1 TABLET BY MOUTH EVERY DAY active Not Available Not Available No t Available hydrocodone 7.5 mg-acetamin ophen 325 mg tablet TAKE 1-2 TABLETS BY MOUTH EVERY 4 TO 6 HOURS NEEDED FOR PAIN active Not Available Not Available No t Available cephalexin 500 mg capsule TAKE 1 TABLET BY MOUTH TWICE DAILY FOR 7 DAYS 02/20 completed Not Available Not Available Not Available pantoprazol e 40 mg tablet,tom yed release TK 1 T PO ONCE D 12/17 completed Not Available Not Available Not Available neomycin-po lymyxin-dex ameth 3.5 mg/mL-10,00 0 unit/mL-0.1 % eye drops 12/17 completed Not Available Not Available Not Available nitrofurant oin macrocrysta l 100 mg capsule active Not Available Not Available Not Available clotrimazol e-betametha sone 1 %-0.05 % topical cream APPLY TO THE AFFECTED AREA TWICE DAILY active Not Available Not Available No t Available gabapentin 300 mg capsule TAKE 1 CAPSULE BY MOUTH TWICE DAILY 08/27 completed Not Available Not Available Not Available omeprazole 20 mg capsule,del ayed release TK 1 C PO D 12/17 completed Not Available Not Available Not Available cephalexin 500 mg tablet Take 1 tablet twice a day by oral route for 7 days. 02/20 completed Not Available Not Available Not Available [place] 10 mg-325 mg tablet Take 1 tablet every 4 hours by oral route. 12/17 completed Not Available Not Available Not Available estradiol 0.5 mg tablet TAKE 1 TABLET BY MOUTH EVERY DAY active Not Available Not Available No t Available ergocalcife rol (vitamin D2) 1,250 mcg (50,000 unit) capsule TAKE 1 CAPSULE BY MOUTH WEEKLY active Not Available Not Available No t Available methylpredn isolone 4 mg tablets in a dose pack FOLLOW PACKAGE DIRECTION S 02/20 completed Not Available Not Available Not Available ketoconazol e 2 % topical cream active Not Available Not Available Not Available cefdinir 300 mg capsule 12/17 completed Not Available Not Available Not Available fluticasone propionate 50 mcg/actuati on nasal spray,suspe nsion 12/17 completed Not Available Not Available Not Available naproxen 500 mg tablet TAKE 1 TABLET BY MOUTH TWICE DAILY 08/27 completed Not Available Not Available Not Available diazepam 5 mg tablet 06/17 completed Not Available Not Available Not Available amoxicillin 875 mg-potassiu m clavulanate 125 mg tablet TAKE 1 TABLET BY MOUTH EVERY 12 HOURS active Not Available Not Available No t Available escitalopra m 10 mg tablet TAKE 1 TABLET BY MOUTH EVERY DAY 08/27 completed Not Available Not Available Not Available glycerin (adult) rectal suppository UNW AND I 1 SUP REC D active Not Available Not Available No t Available diazepam 5 mg-7.5 mg-10 mg rectal kit set both syringes to 10mg will administe r in office 12/17 completed Not Available Not Available Not Available FeroSul 325 mg (65 mg iron) tablet TAKE 1 TABLET BY MOUTH 3 TIMES WEEKLY 10/26 completed Not Available Not Available Not Available Lumigan 0.01 % eye drops ADMINISTE R 1 DROP IN BOTH EYES EVERY NIGHT AT BEDTIME. active Not Available Not Available No t Available Virtussin AC 10 mg-100 mg/5 mL oral liquid 12/17 completed Not Available Not Available Not Available Restasis MultiDose 0.05 % eye drops 12/17 completed Not Available Not Available Not Available Vitals Date Recorded Body height Body mass index (BMI) Body weight Body temperature Heart rate Oxygen saturation Oxygen saturation in Arterial blood by Pulse oximetry Provider Name and Address Organization Details Last Updated DateTime 4 166.37 cm 24.7 kg/m2 15709.4 5 g 97.4 [degF] 79 /min 98 % 98 % Roel Armijo RN [facility] [employer] 4 15:57:45 Date Recorded Systolic blood pressure Diastolic blood pressure Provider Name and Address Organization Details Last Updated DateTime 2023 118 mm[Hg] 68 mm[Hg] Mauricio Palomino MD [address] [facility], [facility] [address], [place], [address], [facility] [employer] 2023 16:21:26 Date Recorded Body height Body mass index (BMI) Body weight Body temperature Heart rate Systolic blood pressure Diastolic blood pressure Provider Name and Address Organization Details Last Updated DateTime 4 166.37 cm 24.1 kg/m2 27850.0 8 g 97.7 [degF] 72 /min 120 mm[Hg] 74 mm[Hg] KANA Spain [facility] [employer] [facility] 4 10:31:32 Date Recorded Body height Body mass index (BMI) Body weight Body temperature Respiratory rate Heart rate Oxygen saturation Oxygen saturation in Arterial blood by Pulse oximetry Systolic blood pressure Diastolic blood pressure Provider Name and Address Organization Details Last Updated DateTime 4 166.37 cm 24.1 kg/m2 60686.0 8 g 98.6 [degF] 16 /min 72 /min 98 % 98 % 120 mm[Hg] 72 mm[Hg] Unique Valerio MA [facility] [employer] 4 11:13:13 Date Recorded Body height Body mass index (BMI) Body weight Body temperature Heart rate Respiratory rate Oxygen saturation Oxygen saturation in Arterial blood by Pulse oximetry Systolic blood pressure Diastolic blood pressure Provider Name and Address Organization Details Last Updated DateTime 4 166.37 cm 24.1 kg/m2 92472.0 8 g 98.6 [degF] 76 /min 16 /min 98 % 98 % 120 mm[Hg] 72 mm[Hg] Kavya Fazal [place] - [facility] [employer] 4 12:29:34 Social History Question Answer Notes LastModified by Organizat ion Details LastModified Time Tobacco Smoking Status Never Smoker Not Available [facility] 06/26/2022 08:06:03 Do You Have An Advance Directive? No Information n ot available 10/27/2023 Do You Wear A Helmet When Biking? Yes [id number] Information not available 06/26/2022 Are You Blind Or Do You Have Difficulty Seeing? No MIGRATION.[id number] Information not available 06/26/2022 In The 14 Days Before Symptom Onset, Have You Had Close Contact With A Laboratory-confirm ed COVID-19 While That Case Was Ill? No Information n ot available 10/27/2023 In The 14 Days Before Symptom Onset, Have You Had Close Contact With A Person Who Is Under Investigation For COVID-19 While That Person Was Ill? No MIGRATION.[id number] Information not available 06/26/2022 Are You Currently Employed? No Retired Information not available 10/27/2023 Are You Deaf Or Do You Have Serious Difficulty Hearing? No MIGRATION.[id number] Information not available 06/26/2022 What Type Of Diet Are You Following? REGULAR MIGRATION.[id number] 6907 Information not available 06/26/2022 What Is The Highest Grade Or Level Of School You Have Completed Or The Highest Degree You Have Received? [id number] MIGRATION.221919 3102 Information not available 06/26/2022 Have There Been Any Changes To Your Family Or Social Situation? No MIGRATION.[id number] 8469 Information not available 06/26/2022 Are There Any Guns Present In Your Home? No MIGRATION.274078 4060 Information not available 06/26/2022 Do You Use Insect Repellent Routinely? No MIGRATION.632347 3543 Information not available 06/26/2022 Do You Have A Medical Power Of Agricultural Aircraft Pilot? No Information not available 10/27/2023 What Was The Date Of Your Most Recent Tobacco Screening? 10/27/2023 Information not available 10/27/2023 Do You Have Any Pets? No MIGRATION.[id number] 1160 Information not available 06/26/2022 What Is Your Relationship Status? Information not available 10/27/2023 Do You Use Your Seat Belt Or Car Seat Routinely? Yes MIGRATION.[id number] 1273 Information not available 06/26/2022 Do You Have Smoke And Carbon Monoxide Detectors In Your Home? Yes MIGRATION.276576 5261 Information not available 06/26/2022 Are You Passively Exposed To Smoke? No MIGRATION.441932 0029 Information not available 06/26/2022 Are There Any Smokers In Your House? No MIGRATION.120473 4385 Information not available 06/26/2022 Do You Feel Stressed (tense, Restless, Nervous, Or Anxious, Or Unable To Sleep At Night)? [id number] MIGRATION.899020 1058 Information not available 06/26/2022 Do You Use Any Illicit Or Recreational Drugs? No MIGRATION.259637 9193 Information not available 06/26/2022 Do You Use Sunscreen Routinely? No MIGRATION.596621 3890 Information not available 06/26/2022 Has Tobacco Cessation Counseling Been Provided? No N/a Information not available 10/27/2023 Have You Recently Traveled Abroad? No MIGRATION.531590 5507 Information not available 06/26/2022 Are You Currently In School? No MIGRATION.632275 9541 Information not available 06/26/2022 Do You Have Any Dietary Restrictions? No MIGRATION.853669 6858 Information not available 06/26/2022 Do You Or Have You Ever Used Any Other Forms Of Tobacco Or Nicotine? No MIGRATION.892820 7487 Information not available 06/26/2022 Sex: Female Functional Status Question Answer Note LastModified by Organizat ion Details LastModified Time Do you have difficulty walking or climbing stairs? No MIGRATION.[id number] 26 Information not available 06/26/2022 Are you able to walk? YESWOREST MIGRATION.[id number] 26 Information not available 06/26/2022 Do you have difficulty doing errands alone? No MIGRATION.[id number] 26 Information not available 06/26/2022 Are you able to care for yourself? Yes MIGRATION.[id number] 26 Information not available 06/26/2022 Do you have difficulty dressing or bathing? No MIGRATION.[id number] 26 Information not available 06/26/2022 What is your exercise level? None MIGRATION.[id number] 26 Information not available 06/26/2022 Mental Status Question Answer Note LastModified by Organizat ion Details LastModified Time Do you have difficulty concentrating, remembering or making decisions? No MIGRATION.[id number] 6 Information not available 06/26/2022 Family History Relationship Description Onset Age of this Age Resolved Age Notes LastModified by Organization Details LastModified Time Mother Osteoarthrit is [email or web address] Not available 2022 16:05:26 Maternal Grandmother Rheumatoid arthritis [email or web address] Not available 2022 16:05:34 Medical History No medical history recorded. Gynecological History Statement/Question Response Menses Monthly N Current Control Method Menopause Breast Problems no Discharge no Obstetrics History GPAL:G 0 P 0 0 0 0 Immunizations Vaccine Type Date Status Note Provider Nam e and Address Organization Details Recorded Time Influenza, high-dose, quadrivalent, PF 02/19/2021 completed Not Available [facility] 3 08:12:40 Influenza, split virus, quadrivalent, PF 02/16/2020 completed Not Available [facility] 3 08:12:40 Past Encounters Encounter ID Performer Location Encounter Start Date Encounter Closed Date Diagnosis/Indication Diagnosis SNOMED-CT Code Diagnosis ICD10 Code Diagnosis Note [id number] [facility] [place] [address] [facility] [place] [address] 10/10/2020 00:00:00 10/10/2020 18:13:03 [id number] [facility] [place] [address] [place] [address] 11/22/2020 00:00:00 11/23/2020 16:54:39 [id number] [facility] [place] [address] [place] [address] 02/19/2021 00:00:00 02/23/2021 09:17:20 [id number] [facility] [place] [address] [facility] [address] [place] [address] 03/29/2021 00:00:00 04/08/2021 17:07:26 [id number] [facility] [place] [address] [place] [address] 07/16/2021 00:00:00 07/16/2021 08:16:55 [id number] [facility] [place] [address] [place] [address] 09/19/2021 00:00:00 09/19/2021 17:12:26 [id number] [facility] [place] [address] [place] [address] 06/05/2022 00:00:00 06/23/2022 16:28:13 [id number] Mauricio Palomino MD [facility] [place] [address] [place] [address] 07/15/2022 13:59:15 07/15/2022 14:31:55 Cervical lymphadenopathy 064262142 R59.0 has completed course of abx and prednisone with very little improvemen tcheck CT neck soft tissue Upper resp iratory infection 75940236 J06.9 reassuranc e givenconti nue supportive carecall Friday if no improvemen t for abx or sooner if needed [id number] Mauricio Palomino MD [facility] [place] [address] [place] [address] 08/13/2022 09:43:11 08/13/2022 10:30:12 Cervical spondylosis 858686119 [address] [id number] Mauricio Palomino MD [facility] [place] [address] [place] [address] 02/20/2023 15:51:48 02/20/2023 16:37:04 Adult health examination 635442161 Z00.00 Z13.1 gets mammogram yearly bone density normal 10/16-repea t [address] Lopez Check fasting labs colonoscop y done 2017-cordell l Screening for disorder 083930927 Z13.9 Hyperlipidemia 92490019 E78.5 stable Iron deficiency 55607494 E61.1 fatigued, check labs Fatigue 94984610 R53.83 check labs Vitamin D deficiency 347 43827 E55.9 Degenerati on of cervical intervertebral disc 19434320 M50.30 has done PT and massage and naproxentr ial of gabapentin 300 mg bid [id number] Mauricio Palomino MD [facility] Primary Care [facility] [address] [place] [address] 04/01/2023 16:13:05 04/08/2023 15:45:38 [id number] Mauricio Palomino MD [facility] Primary Care [facility] [address] [place] [address] 2023 15:52:46 2023 17:11:06 Fatigue 20072220 R53.83 check labs Iron deficiency 30863941 E61.1 fatigued, check labs Vitamin D deficiency 347 58742 E55.9 Hyperlipidemia 70329350 E78.5 lab done recently with cardiology [id number] Marion dinero MD [facility] [address] [facility] [place] [address] 10/27/2023 10:20:10 10/27/2023 11:08:46 Screening - NAD 315648011 Z13.9 C-scope: Get this if not done, states that she did have this Mammogram: Get thisPAP: See Gyne, on estradiolD EXA: Get this if not doneSees Dr Lopez who has ordered these Get yearly flu shot, get TdapGet shingrixGe t PCVGet COVID 19 vaccines RTC in 12 months, do labs, ER if worse Hyperlipidemia 12154272 E78.5 Not on any meds, get labs Malignant tumor of breast 325809573 C50.911 S/p R mastectomy Now sees Dr Lopez who does her mammograms Glaucoma 41404941 H40.9 On lumigenSee s her eye OD Ellen Colantino Vitamin D deficiency 347 72101 E55.9 Pain in right hand 64822 13888 32161 M79.641 S/p surgery by ortho Dr Hathaway Microscopic hematuria [address] Zurita, has been in the past on antibiotic s, will refer again Skin lesion 55404374 L98 .9 Small mobile, soft non tender swelling noted overlying the L clavicle, refer to Dr Johnson Addendum: 11/17/2023 :Dr Johnson 11/04/2023 , next 12/02/2023 [id number] Jacob farrell MD [facility] General Surgery [address] [address] 11/04/2023 11:10:47 11/13/2023 12:08:19 Epidermoid cyst of skin 472317828 L72.0 Neck [id number] Jacob farrell MD [facility] General Surgery [address] [address] 12/02/2023 12:09:36 12/26/2023 13:00:17 Epidermoid cyst of skin 025053410 L72.0 Neck Health Concerns Section Related Observation LastModified by Organization Detai ls LastModified Time None Recorded Concern Status LastModified by Organization Details LastModified Time None Recorded Advance Directives Directive N: Payers Encounter Date Sequence Insurance Name Policy Number Policy Black Covered Member ID Black Member ID Guarantor Name 04/01/2023 1 [place] Lali L Aaron [id number] Lali Aaron 2023 1 [place] Lali L Aaron [id number] 5 Lali Aaron 10/27/2023 1 [place] Lali L Aaron [id number] 5 Lali Aaron 11/04/2023 1 [place] Lali L Aaron [id number] 5 Lali Aaron 12/02/2023 1 [place] Lali Walker [id number] 5 Lali Walker Notes Date Note Type Note Provider Name and Address Organization Details Recorded Time 2023 text/html home readings 110s-120s/70s-80s feel tired, wants to have labs done Mauricio Palomino MD [address], [place], [address], [facility] 09/14/2023 13:54:44 10/27/2023 text/html OV 10/27/2023:He re to establish care Present Hx:HLDGlaucomaHemat uriaGlaucomaBreast cancer Here to discuss above and get labs Marion Palm MD [address], [place], [address], [facility] [facility] 11/17/2023 14:28:11 11/04/2023 text/html patient complain s of lesion on her anterior neck that is been there for approximately a year. Patient states this started as a small pimple on his scalp become larger over time and hard. Denies redness. Denies drainage. Denies fevers or chills. Jacob Pandey MD [address] [address], [place], [address], [facility] [employer] [facility] 11/04/2023 15:02:04 12/02/2023 text/html patient complain s of lesion on her anterior neck that is been there for approximately a year. Patient states this started as a small pimple on the neck and become larger over time and hard. Denies redness. Denies drainage. Denies fevers or chills. Jacob Pandey MD [address], [place], [address], [facility] [employer] [facility] 12/02/2023 14:11:09 OBGyn Episode No OBEpisode recorded.
== END 2024-07-05 12:57 | disposition home or self-care (01) ==
LOC: ANHIMG 12:58
PROVIDERS: PCP Internal Medicine Gastroenterology; Visit Provider Nurse Practitioner
DX: Z13.820 Encounter for screening for osteoporosis (principal); Z78.0 Asymptomatic menopausal state
CPT/HCPCS: 77080

== ENCOUNTER 2024-07-21 12:13 | Outpatient (CLI) | payer MEDICARE, SELFPAY ==
--- NOTE | ~2024-07-21 | MM_ITS ---
EXAMINATION: MM scrn stella implant BI w hsantel HISTORY: Screening. Personal history of right-sided total mastectomy in 1995 with subsequent bilatera l breast implants in 1996. Current history of hormone replacement therapy. TECHNIQUE: Craniocaudal and mediolateral oblique 3-D tomosynthesis images were obtained and synthetic 2-D images were generated. CAD analysis was submitted and interpreted. Implant displaced views were also performed. COMPARISON: 08/16/2022 and dating back to 08/15/2017 BREAST PARENCHYMAL COMPOSITION: There are scattered areas of fibroglandular density. FINDINGS: Stable parenchymal pattern without suspicious microcalcifications, architectural distortion or discre te masses. IMPRESSION: 1. No mammographic evidence of malignancy. 2. Recommend routine screening mammography in one year. BI-RADS Category 1: Negative Reviewed, dictated and finalized at location A.
== END 2024-07-21 12:14 | disposition home or self-care (01) ==
LOC: MICIMG 12:17
PROVIDERS: PCP Internal Medicine; Visit Provider Nurse Practitioner
DX: Z12.31 Encounter for screening mammogram for malignant neoplasm of breast (principal)
CPT/HCPCS: 77063; 77067

== ENCOUNTER 2025-02-17 10:42 | Outpatient (CLI) | payer MEDICARE, SELFPAY ==
--- OUTSIDE RECORDS SUMMARY | 2025-02-17 10:30 | XMS_ITS | Encounter Summary ---
Author Organization [facility] Address [address] [place] [address] Care Team Providers Care Roving Hand Name Role Phone Marion Palm MD Primary Care Provider Reason for Visit * Reason Comments Establish Care Encounter Details Date Type Department Care Team (Late st Contact Info) Description 02/17/2025 10:30 AM CDT Office Visit [facility] Oncology and Hematology - Kai [address] [facility] [address] [address] [place] [address] Giles Webb MD [address] [facility] [address] [place] [address] Easy bruising (Primary Dx) Social History Tobacco Use Types Packs/Day Years Used Date Smoking Tobacco: Never Smokeless Tobacco: Never Tobacco Cessation:Counseling Given: Not Answered Alcohol Use Standard Drinks/Week Comments Yes 0 (1 standard drink = 0.6 oz pur e alcohol) Socially Comments Unknown Sex and Gender Information Value Date Recorded Sex Assigned at Not on file Legal Sex Female 12:59 PM CDT Gender Identity Not on file Sexual Orientation Not on file documented as of this encounter Last Filed Vital Signs Vital Sign Reading Time Taken Comments Blood Pressure 153/86 02/17/2025 10:08 AM CDT Pulse 80 02/17/2025 10:06 AM CDT Temperature 36.1 C (97 F) 02/17/2025 10:06 AM CDT Respiratory Rate 16 02/17/2025 10:06 AM CDT Oxygen Saturation 95% 02/17/2025 10:06 AM CDT Inhaled Oxygen Concentration - - Weight 65 kg (143 lb 3.2 oz) 02/17/2025 10:06 AM CDT Height 167.6 cm (5' 6) 02/17/2025 10:06 AM CDT Body Mass Index 23.11 02/17/2025 10:06 AM CDT documented in this encounter Progress Notes * Giles Webb MD - 02/17/2025 10:50 AM CDT Hematology-oncology consult Note Requesting Physician Primary Care Physician Marion Palm MD Problem list Patient Active Problem List Diagnosis Code Easy bruising R23.3 Previous TREATMENT ? Measurable Disease ? Reason for Visit Lali Walker is a 69 y.o. female who was referred for consultation for easy bruising. History of present illness This is a pleasant 69-year-old female who has been in good health other than history of vitamin D deficiency retired about 3 years ago has been dealing with easy bruising especially in the bilateral upper extremities and hands. Denies any bleeding including melena and hematochezia. She isnot taking any blood thinners or aspirin. She is taking estradiol for hormone replacement therapy for postmenopausal symptoms and hot flashes for long time. She denies any chest pain and shortness ofbreath. Denies any weight changes. Her labs from August 2024 showed WBC 6.1 platelet 260,000 with hemoglobin of 14.5. Patient had previous workup done for easy bruising in 1999 2021 and came back unremarkable. Denies any other complaints. Past Medical History No past medical history on file. Vitamin D deficiency Surgical History Past Surgical History: Procedure Laterality Date HX SECTION HX HYSTERECTOMY Medications Current Outpatient Medications Medication Sig Dispense Refill estradioL (ESTRACE) 1 mg tablet estradiol 1 mg tablet ergocalciferol (VITAMIN D2) 50,000 unit capsule Take 50,000 Units by mouth every 7 days. No current facility-administered medications for this visit. Allergies No Known Allergies Immunizations: Immunization History Administered Date(s) Administered (COMRINATY)(12YR UP) COVID-19 VACCINE, MRNA (PF)30 MCG/0.3 ML, IM SYRINGE 03/16/2024 ([employer]) COVID-19 VACCINE - EMERGENCY USE AUTHORIZATION, AD26,COV2S(PF) 0.5 ML IM SUSP 07/06/2020,03/02/2021 (Moderna Bivalent)(6 Mos Up) COVID-19 Vaccine - Emergency Use Authorization, MRNA(Pf) 50 Mcg/0.5 MlIm Susp 02/21/2022 (SPIKEVAX)(12YR UP) COVID-19 VACCINE, MRNA (PF)50 MCG/0.5 ML, IM SYRINGE 01/30/2023 Family History Family History Problem Relation Name Age of Onset No Known Problems Father No Known Problems Mother No Known Problems Brother No Known Problems Sister No Known Problems Child Social History Social History Tobacco Use Smoking status: Never Smokeless tobacco: Never Substance Use Topics Alcohol use: Yes Comment: Socially Review of Systems Constitutional: Patient did not mention fever; no night sweats; no anorexia; no weight loss; no fatique NEENT: Patient did not mention headache; no change in vision; no change in hearing; no sore throat;no dysphagia Respiratory: Patient did not mention shortness of breath; no pleuritic chest pain; no cough; no hemoptysis Cardiac: Patient did not mention cardiac-like chest pain; no palpitations; no orthopnea; no PND; noDOE Breasts: Patient did not mention tenderness; no masses GI: Patient did not mention abdominal pain; no nausea; no vomiting; no diarrhea; no hematochezia; no melena : Patient did not mention dysuria; no frequency; no hesitancy; no hematuria FIRE PREVENTION SPECIALIST: Musculosketetal: Patient did not mention bone pain; no arthralgia; no joint swelling; no myalgia; Skin: Patient did not mention pruritis; no rash; no petechiae; no ecchymoses Endocrine: Patient did not mention polydipsia; no polyuria; no unusual weight gain Neuro: Patient did not mention headache; no change in vision; no sensory changes; no muscle weakness; no confusion; no seizures Psych: Patient did not mention anxiety; no depression; Physical Exam Vitals: As per nursing note Constitutional: Well developed, well nourished, no acute distress, non-toxic appearance Teeth and gum. No signs of infection or swelling. Eyes: PERRL, conjunctiva normal HEENT: Atraumatic, external ears normal, nose normal, oropharynx moist, no pharyngeal exudates. no sinus tenderness Neck- normal range of motion, no tenderness, supple Respiratory: No respiratory distress, normal breath sounds, no rales, no wheezing Cardiovascular: Normal rate, normal rhythm, no murmurs, no gallops, no rubs GI: Soft, nondistended, normal bowel sounds, nontender, no splenomegaly, no hepatomegaly, no mass, no rebound, no guarding : No costovertebral angle tenderness Musculoskeletal: No edema, no tenderness, no deformities. Back- no tenderness Integument: Well hydrated, no rash, Digits and nails inspection normal Lymphatic: No lymphadenopathy noted Neurologic: Alert & oriented x 3, CN 2-12 normal, normal motor function, normal sensory function, no focal deficits noted Psychiatric: Speech and behavior appropriate ? labs No results found for this or any previous visit (from the past 24 hours). Labs from August 2024 showed WBC 6.1 hemoglobin 14.5 platelet 260,000 neutrophils 66% lymphocyte 26% Pathology ? Imaging & Other Studies Performance Status? Assessment / Plan: ? Easy bruising. Patient is a 69-year-old pleasant female who has been in great health except history of vitamin D deficiency. Patient has been dealing with easy bruising especially involvingboth hands for several years. She denies any bleeding including melena and hematochezia. She is nottaking any blood thinners and aspirin. Patient is taking estradiol for hormone replacement therapy for a long time. She had previous workup done for easy bruising in 1999 2021 and came back unremarkable with normal PT and PTT along with fibrinogen level. I will repeat some of these blood testing including CBC, PT, PTT, fibrinogen level and von Willebrand testing. I suspect her easy bruising is sec ondary to her thin skin related to aging. Other reason for easy bruising could be the use of the estradiol which can make the blood vessel more fragile and the skin further thinner. She said she is taking estradiol only 3-4 times a day week. I have answered all the questions to patient's satisfaction. I will discuss the results with her in 2 weeks. Thank you very much for allowing me to participate in Lali Walker's evaluation and management. Please feel free to contact if I can be of any further assistance in your patient???s care requiring hematology or oncology evaluation. Sincerely, ? ? Giles Webb M.D. cell TOBACCO COUNSELING She is not a tobacco/nicotine user. Giles Webb MD ,02/17/2025 10:50 AM ? Total time spent 60 minutes, two third of the total time spent counseling patient [id number]. CC:?Marion Palm MD documented in this encounter Plan of Treatment Upcoming Encounters Date Type Department Care Team (Late st Contact Info) Description 03/03/2025 4:35 PM HARDWARE TECHNICIAN Telephone Check Up [facility] Oncology and Hematology - Kai [address] [facility] [address] [place] [address] Giles Webb MD [address] [facility] [address] [place] [address] Scheduled Orders Name Type Priority Associated Diagnoses Orde r Schedule PTT Lab Routine Easy bruising Expected: 02/17/2025, Expires: 02/17/2026 PROTIME-INR Lab Routine Easy bruising Expected: 02/17/2025, Expires: 02/17/2026 FIBRINOGEN QUANTITATIVE Lab Routine Easy bruising Expected: 02/17/2025, Expires: 02/17/2026 VON WILLEBRAND PANEL Lab Routine Easy bruising Expected: 02/17/2025, Expires: 02/17/2026 VON WILLEBRAND MULTIMER ASSAY Lab Routine Easy bruising Expected: 02/17/2025, Expires: 02/17/2026 CBC WITHOUT DIFFERENTIAL Lab Stat Easy bruising Expected: 02/17/2025, Expires: 02/17/2026 documented as of this encounter Visit Diagnoses Diagnosis Easy bruising- Primary Other symptoms involving skin and integumentary tissues documented in this encounter Care Teams Roving Hand Relationship Specialty Start Date End Date Marion Palm MD [address] [place] [address] PCP - General Internal Medicine 11/10/24 documented as of this encounter
[2025-02-17 11:05] LABS: Hematocrit 47.5 % (37.0-47.0); Hemoglobin 15.2 g/dL (12.0-15.0); Mean Corpuscular HGB Conc 32.0 g/dl (32-36); Mean Corpuscular Hemoglobin 28.7 pg (26-34); Mean Corpuscular Volume 89.6 fl (80-100); Platelet Count Result 317 k/mm3 (150-375); Red Blood Count 5.30 M/mm3 (4.2-5.4); White Blood Count 8.4 K/mm3 (4.5-10.0)
--- OUTSIDE RECORDS SUMMARY | 2025-02-17 11:50 | XMS_ITS | Clinical Summary ---
Author Organization [facility] [address] Address [address] [place] [address] Care Team Providers Care Server Support Technician Name Role Phone Nguyen Palomino MD Primary [...] Recurrent Surgical History Surgery Date Site/Laterality Comments ME TOTAL ABDOMINAL HYSTERECT W/WO RMVL TUBE OVARY Hysterectomy - (Added by TW Conv) ME RMVL/REVJ SLING STRESS INCONTINENCE Removal/Revision Of Sling For Stress Incontinence - (Added by TW Conv) ME DELIVERY ONLY Section - 1979 & 1985 [...] on file Legal Sex Female 7:47 PM GATE TECHNICIAN Gender Identity Not on file Sexual Orientation [...] 9:39 AM CDT Height 165.7 cm (5' 5.25) 10/16/2020 9:39 AM CD T Body Mass Index 25.43 10/16/2020 9:39 AM CDT Plan of Treatment Not on file Insurance MEDICARE [facility] Care Teams Server Support Technician Relationship Specialty Start Date End Date Nguyen Palomino MD [address] [place] [address] [address] [place] [id number] PCP - General Family Medicine 10/11/20
--- OUTSIDE RECORDS SUMMARY | 2025-02-17 11:50 | XMS_ITS | Encounter Summary ---
Author Organization [facility] Address [address] [facility] [place] [address] Care Team Providers Care Director Specialty Name Role Phone Unavailable Primary Care Provider Unavailabl e Encounter Details Date Type Department Care Team (Late st Contact Info) Description 08/13/2021 Lab Requisition [facility] [address] [place] [address] Becky Garcia MD [address] [place], [place] [id number] Illness, unspecified Social History Tobacco Use Types Packs/Day Years Used Date Smoking Tobacco: Never Assessed Comments Unknown Sex and Gender Information Value Date Recorded Sex Assigned at Not on file Legal Sex Female 3:22 PM CDT Gender Identity Not on file [...] 08/14/2021 4:23 PM CDT [facility] at [address] CDT Microscopic Description and Comment Performed. 08/14/2021 4:23 PM CDT [facility] Clinical History HEMATURIA 08/14/2021 4:23 PM CDT [facility] Materials Received Prepared slide received from [facility] [place] [facility] [id number]. All material will be returned. 08/14/2021 4:23 PM CDT [facility] Disclaimer The performance characteristics of all immunohistochemical and indirect immunofluorescence stains (if any) cited in this report were determined by the Histopathology Laboratory of [facility]. Some of these tests were developed [...] attending (teaching) pathologist. 08/14/2021 4:23 PM CDT [facility] Case Report Surgical Pathology Report Case: [id number] Authorizing Provider: Becky Garcia MD Collected: 08/13/2021 01:49 PM Ordering Location: [facility] Lab Received: 08/13/2021 01:49 PM Pathologist: Jen Mcgee MD Specimen: Slide Consultation 08/14/2021 4:23 PM CDT [facility] Embedded Images 08/14/2021 4:23 PM CDT [facility] Pathology/Cytolo gy SURGICAL PATHOLOGY CONSULTATION AND REPORT ON REFERRED SLIDES PREPARED ELSEWHERE / Unknown 08/13/2021 1:49 PM CDT 08/13/2021 1:49 PM CDT Becky Garcia MD LAB - PATHOLOGY/CYTOLOGY ORDERAB LES Final Result [facility] [address] [facility] [place] [address], [facility] [phone] documented in this encounter Visit Diagnoses Diagnosis Illness, unspecified documented in this encounter
--- OUTSIDE RECORDS SUMMARY | 2025-02-17 11:50 | XMS_ITS | Encounter Summary ---
Author Organization [facility] Care Team Providers Care Feller Hand Name Role Phone Nguyen Palomino MD Primary Care Provider + Encounter Details Date Type Department Care Team (Latest Contact Info) Description 11/26/2016 Orders Only [facility] ProviderTapan MD [address] [place] [id number] Social History Tobacco Use Types Packs/Day Years Used Date Smoking Tobacco: Never Assessed Comments Unknown Sex and Gender Information Value Date Recorded Sex Assigned at Not on file Legal Sex Female 7:47 PM EPIC PROFESSIONAL Gender Identity Not on file Sexual Orientation [...] on filedocumented in this encounter Care Teams Feller Hand Relationship Specialty Start Date End Date Nguyen Palomino MD [address] [place] [address] [address] [place] [address] PCP - General Family Medicine 10/11/20 documented as of this encounter
--- OUTSIDE RECORDS SUMMARY | 2025-02-17 11:50 | XMS_ITS | Data Portability ---
Author Organization [facility] Address [address] [place] [address] Assessment No assessment recorded. Plan of Treatment Reminders Order Date Submit Date Provider Last Modified By Organization Details Last Modified Time Details Appointments None recorded. Lab SARS CoV 2 RNA (COVID-19), QL, wire rope sling maker-PCR, respiratory specimen - granite, exposure [address] [facility] [address] [place], [address], 0 18:11:34 Referral None recorded. Procedures None recorded. Surgeries None recorded. Imaging None recorded. Medication Orders None recorded. Patient TargetsNo targets recorded. Patient Instructions Encounter Date Encounter Id Patient Instructions Last Modified By Organization Details Last Modified Time 08/31/2019 [id number] Reviewed the following recommendations: -Stay home and [...] CoV 2 RNA (COVI D-19) , QL, wire rope sling maker-P CR, respi rator y speci men sars - cov - 2 PCR NEGATI VE mL Not Available [address] [facility] [address] [facility], [place], [address], 09/01/2019 18:11:34 08/31/19 20 08/31/2019 SARS CoV 2 RNA (COVI D-19) , QL, wire rope sling maker-P CR, respi rator y speci men covidcom1 [...] of this test metho d. Not Available [facility] (Lab) [address] [place], [address], 09/01/2019 18:11:34 08/31/19 20 08/31/2019 SARS CoV 2 RNA (COVI D-19) , QL, wire rope sling maker-P CR, respi rator y speci men covidcom2 Posit evin resul ts are indic ative of the prese nce of SARS- CoV-2 RNA and do not rule out bacte rial infec tion or co-in fecti on with other virus es. Not Available [facility] (Lab) [address] [facility], [place], [address], 09/01/2019 18:11:34 08/31/19 20 08/31/2019 SARS CoV 2 RNA (COVI D-19) , QL, wire rope sling maker-P CR, respi rator y speci men covidcom3 Test resul ts shoul d be used along with other clini monse obser vatio ns, patie nt histo ry, epide miolo gical infor matio n and labor atory data in agus pang the diagn osis. Not Available [facility] (Lab) [address] [facility], [place], [address], 09/01/2019 18:11:34 08/31/19 20 08/31/2019 SARS CoV 2 RNA (COVI D-19) , QL, wire rope sling maker-P CR, respi rator y speci men covidcom4 This test has recei galo [facility] Emerg ency Use Autho rizat ion and has been verif ied by [facility] ator[employer] . This test is only autho rized [...] or revok ed soone r. Not Available [facility] (Lab) [address] [place], [address], 09/01/2019 18:11:34 08/31/19 20 08/31/2019 SARS CoV 2 RNA (COVI D-19) , QL, wire rope sling maker-P CR, respi rator y speci men covidcom5 [facility] MeSixty cassandra is certi fied under CLIA- 88 as quali fied to perfo rm high compl exity testi ng. This testi ng was perfo rmed in the [facility] XOGy [place] [address] (CLIA Licen se #[id number], CAP #[id number], AU-ID #[id number]). Not Available [facility] (Lab) [address] [place], [address], 09/01/2019 18:11:34 08/31/19 20 08/31/2019 SARS CoV 2 RNA (COVI D-19) , QL, wire rope sling maker-P CR, respi rator y speci men covidcom6 Facts heet for healt hcare provi ders: https ://ww w.fda .gov/ media /8848 56/do wnloa d Facts heet for patie nts: https ://ww w.fda .gov/ media /1362 57/do wnloa d Not Available [facility] (Lab) [address], [place], [address], 09/01/2019 18:11:34 Result Notes None recorded. Medical [...] Diagnosis SNOMED-CT Code Diagnosis ICD10 Code Diagnosis IMO Codes Diagnosis Note [id number] MD Carlene MacarioSonia tomasia [address] [place] [address] 08/31/2019 10:18:07 08/31/2019 15:20:20 Exposure to SARS-CoV-2 [id number] Z20.828 Health Concerns Section Related Observation LastModified by Organization Detai ls LastModified Time None Recorded Concern Status LastModified by Organization Details LastModified Time None Recorded Advance Directives Directive None Recorded Payers Insurance Date Sequence Insurance Name Policy Number Policy Black Covered Member ID Black Member ID Guarantor Name 05/30/2023 1 [place] [id number] Lali Walker [id number] Lali Walker 05/30/2023 1 [place] Lali Walker [id number] Lali Walker Notes Date Note Type Note Provider Name and Address Organization Details Recorded Time 08/31/2019 text/html COVID-19 Symptom s June 2019Reported by PatientUpper Respiratory SymptomsFor covid-19 signs and symptoms, patient reportscough resolved,fever resolved, andshortness of breath resolved. For associated symptoms, patient reportsno sputum production,no shortness of breath,no wheezing,no fever,no runny nose,no sore throat,no vomiting,no diarrhea,no body aches,no nausea,no change in mental status,no hypotension, andno tachycardia. COVID ScreeningReported by PatientHPIFor onset/duration of fever, patient reportsno fever. For associated symptoms, patient reportsno coughandno shortness of breath.ROS as noted in the HPI pt states that she has a family member that recently tested positive and would like screening she denies any symptoms CHINYERE DOSHI NP Attn: Accounting,[address] [facility], [place], [address], [facility] 08/31/2019 10:45:36 OBGyn Episode No OBEpisode recorded.
--- OUTSIDE RECORDS SUMMARY | 2025-02-17 11:50 | XMS_ITS | Clinical Summary ---
Author Organization [facility] Ivy velasco Magda Address [address] [place] [address] Care Team Providers Care Veneer Production Machine Operator Name Role Phone Marion Palm MD Primary Care Provider Allergies No known active allergies Medications estradioL (ESTRACE) 1 mg tablet estradiol 1 mg tablet 4 Active ergocalciferol (VITAMIN D2) 50,000 unit capsule Take 50,000 Units by mouth every 7 days. 2 Active Active Problems Problem Noted Date Diagnosed Date Easy bruising 11/30/2021 Encounters Date Type Department Care Team Description 02/17/2025 10:30 AM CDT Office Visit [facility] Oncology and Hematology - Kai [address] [facility] [address] [place] [address] Giles Webb MD Easy bruising (Primary Dx) from Last 3 Months Family History Medical History Relation Name Comments No Known Problems Brother No Known Problems Child No Known Problems Father No Known Problems Mother No Known Problems Sister Relation Name Status Comments Brother Alive Child Alive Father Mother Sister Alive Social History [...] Mass Index 23.11 02/17/2025 10:06 AM CDT Plan of Treatment Upcoming Encounters Date Type Department Care Team (Late st Contact Info) Description 03/03/2025 4:35 PM CALIBRATION ENGINEER Telephone Check Up [facility] Oncology and Hematology [facility] [address] [facility] [address] [place] [address] Giles Webb MD [address] [facility] [address] [place] [address] Health Maintenance Due Date Last Done Comments DTAP/TDAP/TD VACCINES (1 - Tdap) 08/27/1974 Traditional Medicare (ACO) A nnual Wellness Visit 08/27/1974 BREAST CANCER SCREENING 1995 COLORECTAL SCREENING 08/27/2000 Colorectal Cancer Screening 08/27/2000 FIT-DNA Q 3 years 08/27/2000 FIT/FOBT Q 1 year 08/27/2000 Flex Sig/CT Colonography Q 5 years 08/27/2000 PNEUMOCOCCAL VACCINE 50+ YEA RS (1 of 1 - PCV) 08/27/2005 ZOSTER VACCINE (1 of 2) 08/27/2005 OSTEOPOROSIS SCREENING 08/27/2020 INFLUENZA VACCINE (#1) 2024 , 03/06/2023, 02/14/2022, Additional history exists COVID-19 Vaccine ( - 2023-2 5 season) 2024 03/16/2024, 01/30/2023, 02/21/2022, Additional history exists RSV VACCINE (60+ or ) (1 - 1-dose 75+ series) 08/27/2030 Insurance MEDICARE PART A AND B Care Teams Veneer Production Machine Operator Relationship Specialty Start Date End Date Marion Palm MD [address] [place] [address] Dr [address] [place] [phone] PCP - General Internal Medicine 11/10/24
--- OUTSIDE RECORDS SUMMARY | 2025-02-17 11:50 | XMS_ITS | Clinical Summary ---
Author Organization [facility] Address [address] [place] [address] Care Team Providers Care Septic Technician Name Role Phone Unavailable Primary Care Provider Unavailabl e Source Comments [facility],non-owned Affiliates and Associated Physician Practices is amultiple site organization consisting of ambulatory clinics and hospital sitesin [place], [place], [place] and [place]. This disclosure is being madepursuant to the Care Everywhere program and may not contain all information available regarding this patient. Last updated 18.[facility] Professional Aptitude [employer] Social History Tobacco Use Types Packs/Day Years [...] SCREENING 1955 LIPID TESTING 1955 MAMMOGRAM 1955 HEPATITIS C SCREENING 08/23/1973 DTAP/TDAP/TD VACCINES (1 - Tdap) 08/27/1974 PNEUMOCOCCAL VACCINE 50+ (1 of 1 - PCV) 08/27/2005 ZOSTER VACCINE (1 of 2) 08/27/2005 DEPRESSION SCREENING 04/28/2024 COVID-19 VACCINE (1 - 2023-2 5 season) 2024 INFLUENZA VACCINE (#1) 2024 Respiratory Syncytial Virus (RSV) Vaccine Pt: or [...] to complete this topic MENINGOCOCCAL (Group B) VACC INE SHARED DECISION-MAKING Aged Out No longer eligibl e based on patient's age to complete this topic MENINGOCOCCAL GROUPS A/C/Y/W VACCINE Aged Out No longer eligible b ased on patient's age to complete this topic Insurance MEDICARE
[2025-02-17 12:17] LABS: INR 0.9; Prothrombin Time 12.8 Seconds (11.1-14.7)
[2025-02-17 12:18] LABS: Fibrinogen 295 mg/dl (215-510); Partial Thromboplastin Time 30.6 Seconds (22.3-36.8)
== END 2025-02-17 10:43 | disposition home or self-care (01) ==
LOC: ANHLAB 10:43
PROVIDERS: PCP Internal Medicine; Visit Provider Internal Medicine Hematology & Oncology
DX: R23.3 Spontaneous ecchymoses (principal)
CPT/HCPCS: 36415; 85027; 85384; 85610; 85730